=== PATIENT | female | born 1935 | race Caucasian/White ===

== ENCOUNTER → 2018-02-22 07:32 | Outpatient (CLI) | payer MEDICARE, BC, SELFPAY ==
[2018-02-22 09:26] LABS: AST(SGOT) 18 U/L (15-37); Alanine Aminotransfer ALT/SGPT 16 U/L (13-56); Albumin, Serum 3.3 g/dL (3.2-5.0); Alkaline Phosphatase 91 U/L (45-117); Bilirubin, Direct 0.12 mg/dL (0.00-0.30); Cholesterol 164 mg/dL (200); Globulin 4.3 g/dL (2.2-4.2); High Density Lipoprotein 70 mg/dL; Protein, Total 7.6 g/dL (6.4-8.2); Triglycerides 85 mg/dL; Very Low Density Lipoprotein 17 mg/dL (5-40)
== END ==
PROVIDERS: Family Provider Family Medicine; PCP Family Medicine; Visit Provider Internal Medicine Cardiovascular Disease
DX: I10 Essential (primary) hypertension (principal); E78.5 Hyperlipidemia, unspecified; I25.10 Atherosclerotic heart disease of native coronary artery without angina pectoris; Z79.899 Other long term (current) drug therapy
CPT/HCPCS: 36415; 80061; 80076

== ENCOUNTER → 2018-09-03 08:12 | Outpatient (CLI) | payer MEDICARE, BC, SELFPAY ==
[2018-09-03 09:14] LABS: AST(SGOT) 16 U/L (15-37); Alanine Aminotransfer ALT/SGPT 18 U/L (13-56); Albumin, Serum 3.3 g/dL (3.2-5.0); Alkaline Phosphatase 83 U/L (45-117); Cholesterol 162 mg/dL (200); Globulin 4.1 g/dL (2.2-4.2); High Density Lipoprotein 70 mg/dL; Protein, Total 7.4 g/dL (6.4-8.2); Triglycerides 70 mg/dL; Very Low Density Lipoprotein 14 mg/dL (5-40)
== END ==
PROVIDERS: Family Provider Family Medicine; PCP Family Medicine; Referring Provider Physician Assistant Medical; Visit Provider Physician Assistant Medical
DX: E11.9 Type 2 diabetes mellitus without complications (principal); E78.5 Hyperlipidemia, unspecified; I10 Essential (primary) hypertension; I25.10 Atherosclerotic heart disease of native coronary artery without angina pectoris
CPT/HCPCS: 36415; 80061; 80076

== ENCOUNTER → 2019-03-09 07:24 | Outpatient (CLI) | payer MEDICARE, BC, SELFPAY ==
[2018-02-24 14:24] VITALS: BMI 34.4
[2019-03-09 08:38] LABS: AST(SGOT) 20 U/L (15-37); Alanine Aminotransfer ALT/SGPT 20 U/L (13-56); Albumin, Serum 3.4 g/dL (3.2-5.0); Alkaline Phosphatase 92 U/L (45-117); Bilirubin, Direct 0.16 mg/dL (0.00-0.30); Cholesterol 162 mg/dL (200); Globulin 4.1 g/dL (2.2-4.2); High Density Lipoprotein 74 mg/dL; Protein, Total 7.5 g/dL (6.4-8.2); Triglycerides 78 mg/dL; Very Low Density Lipoprotein 16 mg/dL (5-40)
== END ==
PROVIDERS: Family Provider Family Medicine; PCP Family Medicine; Referring Provider Physician Assistant Medical; Visit Provider Physician Assistant Medical
DX: E78.5 Hyperlipidemia, unspecified (principal)
CPT/HCPCS: 36415; 80061; 80076

== ENCOUNTER → 2019-03-29 10:09 | Outpatient (CLI) | payer MEDICARE, BC, SELFPAY ==
[2019-03-11 14:05] VITALS: BMI 33.6
[2019-03-29 12:21] LABS: Absolute Lymphocyte Count 1.92 X10^3/ul (0.83-4.51); Absolute Neutrophil Count 2.5 X10^3/uL (2.0-7.7); Basophil# 0.05 X10^3/uL; Basophil% 0.9 % (0-1); Eosinophil# 0.13 X10^3/uL; Eosinophils% 2.4 % (0-5); Hematocrit 40.1 % (37-47); Hemoglobin 13.2 g/dl (12.0-15.0); Lymphocyte # 1.92 X10^3/ul (4.0); Lymphocyte % 35.8 % (19-41); Mean Corp Hgb Conc 32.9 g/gl (32-36); Mean Corpuscular Hgb 31.2 pg (27.0-32.0); Mean Corpuscular Volume 94.8 fL (81-99); Mean Platelet Vol. 12.9 fl (6.2-12.0); Monocyte# 0.76 X10^3/uL; Monocyte% 14.2 % (0-10); Neutrophil % 46.5 % (47-70); Platelet Count 202 K/mm3 (150-450); RBC Distribution Width SD 43.8 fl (35.1-43.9); Red Blood Count 4.23 M/mm3 (4.2-5.4); White Blood Count 5.4 K/mm3 (4.4-11.0)
[2019-03-29 12:22] LABS: POSITIVE COUNT NO; POSITIVE DIFFERENTIAL NO; POSITIVE MORPHOLOGY NO
[2019-03-29 12:52] LABS: Microalbumin,Random Urine 5.3 mg/L (NO RANGE EST.); Microalbumin:Creatinine Ratio 7.3 mg/g CRE (<30 mg/g CRE)
[2019-03-29 13:02] LABS: ALB/GLOB Ratio 0.9 RATIO (0.9-2.4); AST(SGOT) 19 U/L (15-37); Alanine Aminotransfer ALT/SGPT 21 U/L (13-56); Albumin, Serum 3.4 g/dL (3.2-5.0); Alkaline Phosphatase 88 U/L (45-117); Anion Gap 7 (5-15); BUN 14 mg/dL (7-18); Calcium,Total 8.5 mg/dL (8.5-10.1); Chloride 106 mmol/L (98-107); Creatinine, Serum 0.74 mg/dL (0.55-1.02); EST Glomerular Filtration Rate 80 mL/min (>60); Est Glom Filt Rate - Afr Amer 97 mL/min (>60); Globulin 3.7 g/dL (2.2-4.2); Glucose 104 mg/dL (74-106); Potassium 4.4 mmol/L (3.5-5.1); Protein, Total 7.1 g/dL (6.4-8.2); Sodium Level 139 mmol/L (136-145); Thyroid Stim Hormone (TSH) 1.51 uIU/mL (0.358-3.74)
== END ==
PROVIDERS: Family Provider Family Medicine; PCP Family Medicine; Referring Provider Family Medicine; Visit Provider Family Medicine
DX: E03.9 Hypothyroidism, unspecified (principal); I10 Essential (primary) hypertension; M79.89 Other specified soft tissue disorders
CPT/HCPCS: 36415; 80053; 82043; 82570; 84439; 84443; 85025

== ENCOUNTER → 2019-04-05 13:18 | Outpatient (CLI) | payer MEDICARE, BC, SELFPAY ==
[2019-03-11 14:05] VITALS: BMI 33.6
--- NOTE | 2019-04-05 13:20 | VDLE_ITS ---
Reason For Study: Swelling Procedure LEFT Exam performed in department. GSV is normal. A preliminary report was called and/or faxed CFV is compressible, spontaneous, phasic, to Aaron's office. competent, and demonstrates normal augmentation. FV is compressible, spontaneous, phasic, competent and demonstrates normal augmentation. POP V is compressible, spontaneous, phasic, competent and demonstrates normal augmentation. T/P Trunk is compressible. PTV is compressible. LT PerV is compressible. Thrombus filled varicose veins noted in the popliteal space and medial calf. Interpretation Summary Deep veins of the left lower extremity are patent and compressible segmentally. There is no evidence of left lower extremity deep vein thrombosis. Valvular competence appears intact within the proximal deep venous system on the left . The left greater saphenous vein appears patent and compressible segmentally. Acute superficial thrombophlebitis is noted involving superficial varicosities in the left popliteal space and the left medial calf. Ordering Physician: Bry Walker Referring Physician: Bry Walker Performed By: Barbara Patel RVT
== END ==
PROVIDERS: Family Provider Family Medicine; PCP Family Medicine; Referring Provider Family Medicine; Visit Provider Family Medicine
DX: M79.89 Other specified soft tissue disorders (principal)
CPT/HCPCS: 93971

== ENCOUNTER → 2019-09-08 08:21 | Outpatient (CLI) | payer MEDICARE, BC, SELFPAY ==
[2019-03-11 14:05] VITALS: BMI 33.6
[2019-09-08 11:21] LABS: AST(SGOT) 17 U/L (15-37); Alanine Aminotransfer ALT/SGPT 18 U/L (13-56); Albumin, Serum 3.3 g/dL (3.2-5.0); Alkaline Phosphatase 92 U/L (45-117); Bilirubin, Direct 0.14 mg/dL (0.00-0.30); Cholesterol 155 mg/dL (200); Globulin 4.4 g/dL (2.2-4.2); High Density Lipoprotein 72 mg/dL; Protein, Total 7.7 g/dL (6.4-8.2); Triglycerides 84 mg/dL; Very Low Density Lipoprotein 17 mg/dL (5-40)
== END ==
PROVIDERS: Physician Assistant Medical; Family Provider Family Medicine; PCP Family Medicine; Referring Provider Internal Medicine Cardiovascular Disease; Visit Provider Internal Medicine Cardiovascular Disease
DX: E78.00 Pure hypercholesterolemia, unspecified (principal)
CPT/HCPCS: 36415; 80061; 80076

== ENCOUNTER → 2020-09-05 08:29 | Outpatient (CLI) | payer MEDICARE, BC, SELFPAY ==
[2019-09-14 13:39] VITALS: BMI 33.6
[2020-09-05 11:28] LABS: AST(SGOT) 20 U/L (15-37); Alanine Aminotransfer ALT/SGPT 19 U/L (13-56); Albumin, Serum 3.3 g/dL (3.2-5.0); Alkaline Phosphatase 81 U/L (45-117); Bilirubin, Direct 0.18 mg/dL (0.00-0.30); Cholesterol 167 mg/dL (200); Globulin 4.2 g/dL (2.2-4.2); High Density Lipoprotein 70 mg/dL; Protein, Total 7.5 g/dL (6.4-8.2); Triglycerides 100 mg/dL; Very Low Density Lipoprotein 20 mg/dL (5-40)
== END ==
PROVIDERS: PCP Family Medicine; Referring Provider Internal Medicine Cardiovascular Disease; Visit Provider Internal Medicine Cardiovascular Disease
DX: E78.00 Pure hypercholesterolemia, unspecified (principal)
CPT/HCPCS: 36415; 80061; 80076

== ENCOUNTER → 2021-04-25 07:34 | Outpatient (CLI) | payer MEDICARE, BC, SELFPAY ==
[2020-09-12 14:01] VITALS: BMI 33.5
[2021-04-25 09:05] LABS: AST(SGOT) 18 U/L (15-37); Alanine Aminotransfer ALT/SGPT 19 U/L (13-56); Albumin, Serum 3.3 g/dL (3.2-5.0); Alkaline Phosphatase 96 U/L (45-117); Cholesterol 160 mg/dL (200); Globulin 4.4 g/dL (2.2-4.2); High Density Lipoprotein 64 mg/dL; Protein, Total 7.7 g/dL (6.4-8.2); Triglycerides 73 mg/dL; Very Low Density Lipoprotein 15 mg/dL (5-40)
== END ==
PROVIDERS: PCP Family Medicine; Referring Provider Internal Medicine Cardiovascular Disease; Visit Provider Internal Medicine Cardiovascular Disease
DX: E78.00 Pure hypercholesterolemia, unspecified (principal)
CPT/HCPCS: 36415; 80061; 80076

== ENCOUNTER → 2021-09-05 08:26 | Outpatient (CLI) | payer MEDICARE, BC, SELFPAY ==
[2021-09-05 10:58] LABS: AST(SGOT) 19 U/L (15-37); Alanine Aminotransfer ALT/SGPT 19 U/L (13-56); Alkaline Phosphatase 80 U/L (45-117); Cholesterol 153 mg/dL (200); Globulin 4.3 g/dL (2.2-4.2); High Density Lipoprotein 66 mg/dL; Protein, Total 7.3 g/dL (6.4-8.2); Triglycerides 78 mg/dL; Very Low Density Lipoprotein 16 mg/dL (5-40)
== END ==
PROVIDERS: PCP Family Medicine; Referring Provider Internal Medicine Cardiovascular Disease; Visit Provider Internal Medicine Cardiovascular Disease
DX: E78.00 Pure hypercholesterolemia, unspecified (principal); I25.10 Atherosclerotic heart disease of native coronary artery without angina pectoris; I10 Essential (primary) hypertension
CPT/HCPCS: 36415; 80061; 80076

== ENCOUNTER → 2021-10-14 10:21 | Outpatient (CLI) | payer MEDICARE, BC, SELFPAY ==
[2021-10-14 12:29] LABS: Erythrocyte Sedimentation Rate 18 mm/hr (0-30)
[2021-10-14 12:42] LABS: Microalbumin:Creatinine Ratio 11.8 mg/g CRE (<30 mg/g CRE)
[2021-10-14 13:25] LABS: Anion Gap 5 (5-15); BUN 11 mg/dL (7-18); BUN/Creat Ratio 14.4 RATIO (10-20); CRP < 2.90 mg/L (0.0-3.0); Calcium,Total 8.9 mg/dL (8.5-10.1); Chloride 108 mmol/L (98-107); Creatinine, Serum 0.76 mg/dL (0.55-1.02); EST Glomerular Filtration Rate 76 mL/min (>60); Est Glom Filt Rate - Afr Amer 92 mL/min (>60); Glucose 117 mg/dL (74-106); Magnesium 1.6 mg/dL (1.6-2.6); Potassium 3.8 mmol/L (3.5-5.1); Sodium Level 142 mmol/L (136-145); Thyroid Stim Hormone (TSH) 1.29 uIU/mL (0.358-3.74)
[2021-10-14 14:28] LABS: Hemoglobin A1c 5.8 % (3.8-5.6)
== END ==
PROVIDERS: PCP Family Medicine; Referring Provider Family Medicine; Visit Provider Family Medicine
DX: E03.9 Hypothyroidism, unspecified (principal); K58.9 Irritable bowel syndrome, unspecified; I10 Essential (primary) hypertension; E11.9 Type 2 diabetes mellitus without complications
CPT/HCPCS: 36415; 80048; 82043; 82570; 83036; 83735; 84443; 85652; 86140

== ENCOUNTER 2021-11-19 12:31 | Outpatient (CLI) | payer MEDICARE, BC, SELFPAY ==
--- NOTE | 2021-11-19 12:35 | BI_ITS ---
MAMMOGRAPHY - BILATERAL SCREENING REASON FOR EXAM: Female, 86 years old. Routine annual screening examination. PERTINENT HISTORY: Personal history of breast cancer. The patient is status post left lumpectomy. The patient is also status post right excisional breast biopsy. TECHNIQUE: Digital bilateral breast sukhi (3D mammographic acquisition) in the CC and MLO projections. 2-D mediolateral oblique (MLO) and craniocaudad (CC) views of both breasts were obtained. CAD: Full Field Digital Mammography with Computer Added Detection was performed. COMPARISON: Comparison is made with prior study dated 01/01/2017 and 08/30/2015. FINDINGS: Breast Composition: There are scattered areas of fibroglandular density. There are no dominant masses or suspicious calcifications. Stable small benign appearing bilateral axillary nodes. Stable bilateral microcalcifications. No other significant abnormalities are identified. There has been no significant change since the prior study. BI/SCREENING MAMM (CAD), BILAT IMPRESSION: Stable bilateral screening mammogram. Yearly follow-up mammogram recommended. (A) ASSESSMENT CATEGORY: BIRADS Category 2: Benign. A letter regarding these results will be sent to the patient by the facility within 30 days. Approximately 10% of breast cancers are not detected by mammography. A normal mammogram should not delay biopsy of a clinically suspicious abnormality. [id number] Electronically Signed: Franco Hurtado MD at 14:07 EST , Service support ,
--- NOTE | 2021-11-19 12:43 | BD_ITS ---
STUDY: DUAL ENERGY X-RAY ABSORPTIOMETRY / DXA REASON FOR EXAM: Female, 86 years old. N95.9 TECHNIQUE: Bone Mineral Density (BMD) measurements of lumbar spine and bilateral hips were obtained. COMPARISON: Comparison is made with prior study dated 10/06/2012. FINDINGS: Lumbar Spine (L1-L4): g/cm2 (1.295) / T-score (2.9) / Z-score (5.6) Findings are suggestive of normal bone density with a low fracture risk. Left Femur Total: g/cm2 (1.118) / T-score (1.4) / Z-score (3.8) Left Femoral Neck: g/cm2 (0.885) / T-score (0.3) / Z-score (2.8) Right Femur Total: g/cm2 (1.069) / T-score (1.0) / Z-score (3.4) Right Femoral Neck: g/cm2 (0.891) / T-score (0.4) / Z-score (2.9) The T-Scores on the most recent prior examination were: Lumbar Spine (L1-L4): There has been worsening of bone density since the previous examination. Left Femur Total: which represents a worsening of 7.9%. Right Femur Total: which represents a worsening of 5.8%. BD/Dexa Bone Density Study IMPRESSION: The patient is considered normal as outlined below according to World Jose Organization (WHO) criteria with a low fracture risk. There has been worsening of bone density since the previous examination. Reference Information: The T-score is the number of standard deviations above or below the standard which is normal for young adults at their peak bone mineral density. The World Health Organization (WHO) interprets the T-scores as follows: Above -1 Normal bone density Between -1 and -2.5 Osteopenia Equal to / or below -2.5 Osteoporosis As a practical clinical guideline, osteopenia may be graded as follows: Mild -1 through -1.5 Moderate -1.6 through -2.0 Severe -2.1 through -2.4 The Z-score is the number of standard deviations above or below age-matched controls. A Z-score of less than -1.5 would be considered abnormal. References: 1. NIH Osteoporosis and Related Bone Diseases www osteo.org 2. International Society for Clinical Densitometry www iscd.org 3. National Osteoporosis Foundation www nof.org Electronically Signed: Franco Hurtado MD at 15:32 EST , Service support ,
== END 2021-11-19 23:59 | disposition short-term general hospital (02) ==
LOC: OPBD 12:31
PROVIDERS: PCP Family Medicine; Visit Provider Family Medicine
DX: N95.9 Unspecified menopausal and perimenopausal disorder (principal); Z12.31 Encounter for screening mammogram for malignant neoplasm of breast; Z85.3 Personal history of malignant neoplasm of breast
CPT/HCPCS: 77067; 77080

== ENCOUNTER → 2022-04-21 | Outpatient (CLI) | payer MEDICARE, BC, SELFPAY ==
[2022-04-21 10:58] LABS: AST(SGOT) 23 U/L (15-37); Alanine Aminotransfer ALT/SGPT 21 U/L (13-56); Albumin, Serum 3.1 g/dL (3.2-5.0); Alkaline Phosphatase 84 U/L (45-117); Bilirubin, Direct 0.16 mg/dL (0.00-0.30); Cholesterol 150 mg/dL (200); Globulin 4.5 g/dL (2.2-4.2); High Density Lipoprotein 61 mg/dL; Protein, Total 7.6 g/dL (6.4-8.2); Triglycerides 71 mg/dL; Very Low Density Lipoprotein 14 mg/dL (5-40)
[2022-04-21 11:01] LABS: ALB/GLOB Ratio 0.7 RATIO (0.9-2.4); AST(SGOT) 18 U/L (15-37); Alanine Aminotransfer ALT/SGPT 19 U/L (13-56); Albumin, Serum 3.1 g/dL (3.2-5.0); Alkaline Phosphatase 86 U/L (45-117); Anion Gap 6 (5-15); BUN 15 mg/dL (7-18); Calcium,Total 8.8 mg/dL (8.5-10.1); Chloride 107 mmol/L (98-107); Creatinine, Serum 0.79 mg/dL (0.55-1.02); EST Glomerular Filtration Rate 73 mL/min (>60); Est Glom Filt Rate - Afr Amer 89 mL/min (>60); Globulin 4.3 g/dL (2.2-4.2); Glucose 116 mg/dL (74-106); Potassium 3.7 mmol/L (3.5-5.1); Protein, Total 7.4 g/dL (6.4-8.2); Sodium Level 140 mmol/L (136-145); Thyroid Stim Hormone (TSH) 1.49 uIU/mL (0.358-3.74)
[2022-04-21 11:01] LABS: Microalbumin,Random Urine 18.6 mg/L (NO RANGE EST.); Microalbumin:Creatinine Ratio 10.4 mg/g CRE (<30 mg/g CRE)
== END | disposition home or self-care (01) ==
LOC: MTLAB 08:11
PROVIDERS: PCP Family Medicine; Referring Provider Internal Medicine Cardiovascular Disease; Visit Provider Internal Medicine Cardiovascular Disease
DX: E11.628 Type 2 diabetes mellitus with other skin complications (principal); E78.00 Pure hypercholesterolemia, unspecified; E03.9 Hypothyroidism, unspecified
CPT/HCPCS: 36415; 80053; 80061; 80076; 82043; 82570; 84443

== ENCOUNTER → 2022-09-23 | Outpatient (CLI) | payer MEDICARE, BC, SELFPAY ==
[2022-09-23 10:18] LABS: AST(SGOT) 21 U/L (15-37); Alanine Aminotransfer ALT/SGPT 23 U/L (13-56); Albumin, Serum 3.3 g/dL (3.2-5.0); Alkaline Phosphatase 92 U/L (45-117); Bilirubin, Direct 0.14 mg/dL (0.00-0.30); Cholesterol 164 mg/dL (200); Globulin 4.7 g/dL (2.2-4.2); High Density Lipoprotein 67 mg/dL; Triglycerides 101 mg/dL; Very Low Density Lipoprotein 20 mg/dL (5-40)
== END | disposition home or self-care (01) ==
LOC: MTLAB 08:25
PROVIDERS: PCP Family Medicine; Referring Provider Internal Medicine Cardiovascular Disease; Visit Provider Internal Medicine Cardiovascular Disease
DX: E78.00 Pure hypercholesterolemia, unspecified (principal)
CPT/HCPCS: 36415; 80061; 80076

== ENCOUNTER → 2022-11-20 | Outpatient (CLI) | payer MEDICARE, BC, SELFPAY ==
--- NOTE | 2022-11-20 11:50 | BI_ITS ---
MAMMOGRAPHY - BILATERAL SCREENING REASON FOR EXAM: Female, 87 years old. Routine annual screening examination. PERTINENT HISTORY: Personal history of breast cancer. Prior right excisional breast biopsy and left lumpectomy. TECHNIQUE: Digital bilateral breast silvino (3D mammographic acquisition) in the CC and MLO projections. 2-D mediolateral oblique (MLO) and craniocaudad (CC) views of both breasts were obtained. CAD: Full Field Digital Mammography with Computer Added Detection was performed. COMPARISON: Comparison is made with prior examination dated 11/19/2021 and 01/01/2017. FINDINGS: Breast Composition: There are scattered areas of fibroglandular density. There are no dominant masses or suspicious calcifications. Stable small benign-appearing axillary lymph nodes. Stable scattered bilateral calcified nodules. No other significant abnormalities are identified. There has been no significant change since the prior study. BI/SCRN MAMM (CAD)W/SILVINO BILAT IMPRESSION: Stable bilateral screening mammogram. Yearly follow-up mammogram recommended. (A) ASSESSMENT CATEGORY: BIRADS Category 2: Benign. A letter regarding these results will be sent to the patient by the facility within 30 days. Approximately 10% of breast cancers are not detected by mammography. A normal mammogram should not delay biopsy of a clinically suspicious abnormality. [id number] Electronically Signed: Franco Hurtado MD at 13:08 EST ,
== END | disposition home or self-care (01) ==
LOC: OPBI 11:48
PROVIDERS: PCP Family Medicine; Referring Provider Family Medicine; Visit Provider Family Medicine
DX: Z12.31 Encounter for screening mammogram for malignant neoplasm of breast (principal); Z86.000 Personal history of in-situ neoplasm of breast
CPT/HCPCS: 77063; 77067

== ENCOUNTER → 2023-07-24 | Outpatient (CLI) | payer MEDICARE, BC, SELFPAY ==
[2023-07-24 12:04] LABS: Absolute Neutrophil Count 3.2 X10^3/uL (2.0-7.7); Basophil# 0.06 X10^3/uL; Eosinophil# 0.13 X10^3/uL; Eosinophils% 2.1 % (0-5); Hematocrit 40.4 % (37-47); Hemoglobin 12.6 g/dL (12.0-15.0); Lymphocyte % 32.2 % (19-41); Mean Corp Hgb Conc 31.2 g/dL (32-36); Mean Corpuscular Hgb 30.5 pg (27.0-32.0); Mean Corpuscular Volume 97.8 fL (81-99); Mean Platelet Vol. 12.3 fl (6.2-12.0); Monocyte# 0.82 X10^3/uL; Monocyte% 13.2 % (0-10); NRBC Flagged by Analyzer 0 % (0-5); Neutrophil # 3.19 X10^3/uL (2.7-7.7); Neutrophil % 51.3 % (47-70); Platelet Count 250 K/mm3 (150-450); RBC Distribution Width CV 12.7 % (11.6-14.6); RBC Distribution Width SD 45.2 fl (35.1-43.9); Red Blood Count 4.13 M/mm3 (4.2-5.4); White Blood Count 6.2 K/mm3 (4.4-11.0)
[2023-07-24 12:50] LABS: ALB/GLOB Ratio 0.7 RATIO (0.9-2.4); AST(SGOT) 15 U/L (15-37); Alanine Aminotransfer ALT/SGPT 16 U/L (13-56); Albumin, Serum 3.2 g/dL (3.2-5.0); Alkaline Phosphatase 88 U/L (45-117); Anion Gap 3 (5-15); BUN 16 mg/dL (7-18); Chloride 107 mmol/L (98-107); Creatinine, Serum 0.84 mg/dL (0.55-1.02); EST Glomerular Filtration Rate 68 mL/min (>60); Est Glom Filt Rate - Afr Amer 82 mL/min (>60); Globulin 4.5 g/dL (2.2-4.2); Glucose 117 mg/dL (74-106); Potassium 4.3 mmol/L (3.5-5.1); Protein, Total 7.7 g/dL (6.4-8.2); Sodium Level 137 mmol/L (136-145)
[2023-07-24 13:01] LABS: Microalbumin,Random Urine 6.2 mg/L (NO RANGE EST.); Microalbumin:Creatinine Ratio 10.4 mg/g CRE (<30 mg/g CRE)
[2023-07-24 13:16] LABS: Hemoglobin A1c 6.2 % (3.8-5.6)
== END | disposition home or self-care (01) ==
LOC: MTLAB 10:42
PROVIDERS: PCP Family Medicine; Referring Provider Family Medicine; Visit Provider Family Medicine
DX: E11.628 Type 2 diabetes mellitus with other skin complications (principal); I10 Essential (primary) hypertension
CPT/HCPCS: 36415; 80053; 82043; 82570; 83036; 85025

== ENCOUNTER → 2023-11-11 | Outpatient (CLI) | payer MEDICARE, BC, SELFPAY ==
--- OUTSIDE RECORDS SUMMARY | 2023-11-11 08:02 | XMS RPT_ITS | CCD ---
Author Name Unknown Address [facility] [employer] [facility] [address] [place] [address] Organization [facility] Care Team Providers Care Manager Environmental Health Name Role Phone Gerson Walker Unavailable Unavailable FREDI Anthony, Shelly Maguire Unavailable [phone] Gerson Walker Unavailable Unavailable Gerson Walker Unavailable Unavailable Yareli Bradley Unavailable Allergies Allergy Classification Reported Allergen(s) Allergy Type Date of Onset Reaction(s) Facility (4 sources) Sulfonamides (Antibiotic) drug allergy 2 [facility] Work Phone: Medications Completed/Discontinued Medications Medication Drug Class(es) Dates Sig (Normalized) Sig (Original) amoxicillin 875 mg oral tablet (8 sources) Penicillin-class Antibacterial Start: 09-30-2013 End: 09-25-2014 AMOXICILLIN 875 MG TABS for sinus infection AMOXICILLIN [id number] Dominic Thao MD aspirin 81 mg oral tablet (8 sources) Nonsteroidal Anti-inflammatory Drug Start: 03-08-2012 take 1 tablet by mouth once daily ASPIRIN 81 MG TABS One tablet by mouth daily ASPIRIN [id number] Tahmina Mederos RN Problems Active Problems Problem Classification Problem Date Documented Date Episodic/Chronic Conduction disorders (4 sources) First degree atrioventricular block; Translations: [Atrioventricular block, first degree] Onset: 05-28-2015 05-28-2015 Chronic Coronary atherosclerosis and other heart disease (4 sources) Atherosclerotic heart disease of [place] coronary artery without angina pectoris; Translations: [Atherosclerotic heart disease of [place] coronary artery without angina pectoris] Onset: 05-10-2012 05-10-2012 Chronic Diabetes mellitus without complication (4 sources) Diabetes mellitus; Translations: [Type 2 diabetes mellitus without complications] Onset: 03-08-2012 03-08-2012 Chronic Disorders of lipid metabolism (8 sources) Hyperlipidemia; Translations: [Hypercholesterolemia] Onset: 05-10-2012 07-16-2012 Chronic Essential hypertension (4 sources) Hypertensive disorder; Translations: [Essential (primary) hypertension] Onset: 03-08-2012 03-08-2012 Chronic Other and ill-defined heart disease (4 sources) Heart disease; Translations: [Other ill-defined heart diseases] Onset: 03-15-2012 03-15-2012 Chronic Other nutritional; endocrine; and metabolic disorders (2 sources) Body mass index (BMI) 30.0-30.9, adult; Translations: [Body mass index (BMI) 30.0-30.9, adult] Onset: 09-30-2013 09-30-2013 Chronic Other nutritional; endocrine; and metabolic disorders (4 sources) Body mass index (BMI) 31.0-31.9, adult; Translations: [Body mass index (BMI) 31.0-31.9, adult] Onset: 09-25-2014 12-22-2016 Chronic Unclassified (10 sources) Body mass index (BMI) 32.0-32.9, adult; Translations: [Body mass index (BMI) 31.0-31.9, adult] Onset: 09-30-2013 10-26-2015 Chronic Unclassified (8 sources) Long-term drug therapy; Translations: [Long-term (current) use of other medications] Onset: 07-16-2012 07-16-2012 Past or Other Problems Problem Classification Problem Date Documented Date Episodic/Chronic Residual codes; unclassified (2 sources) Family history of stroke; Translations: [Family history of stroke] 09-25-2014 Episodic Residual codes; unclassified (2 sources) FH: Hypertension; Translations: [Family history of ischemic heart disease and other diseases of the circulatory system] 09-25-2014 Episodic Unclassified (4 sources) Electrocardiogram abnormal; Translations: [Abnormal electrocardiogram [ECG] [EKG]] Onset: 03-08-2012 03-08-2012 Episodic Unclassified (12 sources) Body mass index (BMI) 29.0-29.9, adult; Translations: [FH: Hypertension] Onset: 09-30-2013 Resolved: 10-24-2015 04-05-2014 Episodic Results Test Name Value Interpretation Reference Range Facil ity Vital Signs Date Time Vital Sign Value Performing Clinician Chay orellana 08-28-2017 13:29-0400 BMI (Body Mass Index) 31.79 kg/m2 Harumi DeFinchandana [facility] Work Phone: 08-28-2017 13:29-0400 BP Diastolic 76 mm[Hg] Harumi DeFinis [facility] Work Phone: 08-28-2017 13:29-0400 BP Systolic 142 mm[Hg] Harumi DeFinis [facility] Work Phone: 08-28-2017 13:29-0400 Height 168.91 cm Harumi DeFinis [facility] Work Phone: 08-28-2017 13:29-0400 Pulse (Heart Rate) 64 /min Harumi DeFinis [facility] Work Phone: 08-28-2017 13:29-0400 Respiratory Rate 18 /min Harumi DeFinis [facility] Work Phone: 08-28-2017 13:29-0400 Weight 90.72 kg Harumi DeFinis [facility] Work Phone: 12-22-2016 14:15-0500 BMI (Body Mass Index) 31.92 kg/m2 Shelly Anthony PA-C [facility] Work Phone: 12-22-2016 14:15-0500 BP Diastolic 60 mm[Hg] Shelly Anthony PA-C [facility] Work Phone: 12-22-2016 14:15-0500 BP Systolic 112 mm[Hg] Shelly Anthony PA-C [facility] Work Phone: 12-22-2016 14:15-0500 BSA (Body Surface Area) 2.02 m2 Shelly Anthony PA-C [facility] Work Phone: 12-22-2016 14:15-0500 Pulse (Heart Rate) 72 /min Shelly Anthony PA-C [facility] Work Phone: 12-22-2016 14:15-0500 Respiratory Rate 20 /min Shelly Anthony PA-C [facility] Work Phone: 12-22-2016 14:15-0500 Weight 91.08 kg Shelly Anthony PA-C [facility] Work Phone: 10-26-2015 13:55-0500 Heart rate 67 /min Harumi DeFinis [facility] Work Phone: 03-25-2012 15:34-0400 Heart rate 424 ms Harumi DeFinis [facility] Work Phone: 03-12-2012 13:20-0400 Height 168.91 cm Shelly Anthony PA-C [facility] Work Phone: Procedures Date Procedure Procedure Detail Performing Clinician Start: 08-28-2017 End: 08-28-2017 Follow Up Appt 6 months Dominic Thao MD Start: 08-28-2017 End: 08-28-2017 MMM Dominic Thao MD Start: 06-22-2017 End: 08-26-2017 *Hepatic Function Panel Shelly green PA-C Work Phone: Start: 06-22-2017 End: 08-26-2017 Lipid 1996 panel - Serum or Plasma Shelly Anthony PA-C Work Phone: Start: 12-22-2016 End: 12-22-2016 *Hepatic Function Panel Shelly green PA-C Work Phone: Start: 12-22-2016 End: 12-22-2016 Follow Up Appt 9 months Shelly green PA-C Work Phone: Start: 12-22-2016 End: 12-22-2016 Lipid 1996 panel - Serum or Plasma Shelly Anthony PA-C Work Phone: Start: 12-22-2016 End: 12-22-2016 PFM Shelly Anthony PA-C Work Phone: Start: 06-23-2016 End: 06-23-2016 Dietary management education, guidance, and counseling Gerson Walker Start: 06-23-2016 End: 06-23-2016 Follow Up Appt 6 months Dominic Thao MD Start: 06-23-2016 End: 06-23-2016 MMM Dominic Thao MD Start: 06-09-2016 End: 06-25-2016 *Hepatic Function Panel Dominic Thao MD Start: 06-09-2016 End: 06-25-2016 Lipid 1996 panel - Serum or Plasma Dominic Thao MD Start: 04-24-2016 End: 06-20-2016 *Hepatic Function Panel Shelly green PA-C Work Phone: Start: 04-24-2016 End: 06-20-2016 Lipid 1996 panel - Serum or Plasma Shelly Anthony PA-C Work Phone: Start: 10-26-2015 End: 10-26-2015 Ecg routine ecg w/least 12 lds w/i&r Shelly Anthony PA-C Work Phone: Start: 10-26-2015 End: 10-26-2015 Follow Up Appt 6 months Shelly green PA-C Work Phone: Start: 10-26-2015 End: 10-26-2015 Follow Up Appt Other Shelly frost PA-C Work Phone: Start: 10-26-2015 End: 10-26-2015 PFM Shelly Anthony PA-C Work Phone: Start: 10-24-2015 End: 10-24-2015 *Hepatic Function Panel Shelly green PA-C Work Phone: Start: 10-24-2015 End: 10-24-2015 Lipid 1996 panel - Serum or Plasma Shelly Anthony PA-C Work Phone: Start: 05-02-2015 End: 05-02-2015 Follow Up Appt 6 months Dominic Thao MD Start: 05-02-2015 End: 05-02-2015 MMM Dominic Thao MD Start: 04-30-2015 End: 04-30-2015 *Hepatic Function Panel Shelly green PA-C Work Phone: Start: 04-30-2015 End: 04-30-2015 Lipid 1996 panel - Serum or Plasma Shelly Anthony PA-C Work Phone: Start: 09-25-2014 End: 11-07-2014 *Hepatic Function Panel Shelly green PA-C Work Phone: Start: 09-25-2014 End: 09-25-2014 Ecg routine ecg w/least 12 lds w/i&r Shelly Anthony PA-C Work Phone: Start: 09-25-2014 End: 09-25-2014 Follow Up Appt 6 months Shelly green PA-C Work Phone: Start: 09-25-2014 End: 11-07-2014 Lipid 1996 panel - Serum or Plasma Shelly Anthony PA-C Work Phone: Start: 09-25-2014 End: 09-25-2014 PFM Shelly Anthony PA-C Work Phone: Start: 04-05-2014 End: 09-25-2014 *Hepatic Function Panel Dominic Thao MD Start: 04-05-2014 End: 04-05-2014 Follow Up Appt 6 months Dominic Thao MD Start: 04-05-2014 End: 09-25-2014 Lipid 1996 panel - Serum or Plasma Dominic Thao MD Start: 04-05-2014 End: 04-05-2014 MMM Dominic Thao MD Start: 09-30-2013 End: 04-04-2014 *Hepatic Function Panel Dominic Thao MD Start: 09-30-2013 End: 04-05-2014 Follow Up Appt 6 months Dominic Thao MD Start: 09-30-2013 End: 04-04-2014 Lipid 1996 panel - Serum or Plasma Dominic Thao MD Start: 09-30-2013 End: 04-05-2014 PFM Dominic Thao MD Start: 06-09-2013 End: 04-05-2014 *Hepatic Function Panel Manuel Beckford MD Start: 06-09-2013 End: 04-05-2014 Lipid 1996 panel - Serum or Plasma Manuel Beckford MD Start: 10-09-2012 End: 12-28-2012 *Hepatic Function Panel Manuel Beckford MD Start: 10-09-2012 End: 12-28-2012 Lipid 1996 panel - Serum or Plasma Manuel Beckford MD Start: 05-10-2012 End: 07-15-2012 *Hepatic Function Panel Manuel Beckford MD Start: 05-10-2012 End: 05-10-2012 Follow Up Appt Other Manuel Beckford MD Start: 05-10-2012 End: 07-15-2012 Lipid 1996 panel - Serum or Plasma Manuel Beckford MD Start: 03-25-2012 End: 04-20-2012 aPTT in Platelet poor plasma by Coagulation assay Manuel Beckford MD Start: 03-25-2012 End: 04-20-2012 Chest x-ray Manuel Beckford MD Start: 03-25-2012 End: 03-25-2012 Ecg routine ecg w/least 12 lds w/i&r Manuel Beckford MD Start: 03-25-2012 End: 03-25-2012 Follow Up Appt 2 months Manuel Beckford MD Start: 03-25-2012 End: 04-20-2012 INR in Platelet poor plasma by Coagulation assay Manuel Beckford MD Start: 03-25-2012 End: 04-20-2012 Left Heart Cath Manuel Beckford MD Start: 03-12-2012 End: 03-18-2012 *BMP Manuel Beckford MD Start: 03-12-2012 End: 03-18-2012 *CBC with Differential Manuel Beckford MD Start: 03-12-2012 End: 03-18-2012 24 hour holter monitor Manuel Beckford MD Start: 03-12-2012 End: 03-18-2012 aPTT in Platelet poor plasma by Coagulation assay Manuel Beckford MD Start: 03-12-2012 End: 03-18-2012 Echocardiography Manuel Beckford MD Start: 03-12-2012 End: 03-18-2012 Follow Up Appt 2 months Manuel Beckford MD Start: 03-12-2012 End: 03-18-2012 INR in Platelet poor plasma by Coagulation assay Manuel Beckford MD Start: 03-12-2012 End: 03-18-2012 Lipid 1996 panel - Serum or Plasma Manuel Beckford MD Start: 03-12-2012 End: 03-18-2012 Magnesium [Mass/volume] in Serum or Plasma Manuel Beckford MD Start: 03-12-2012 End: 03-18-2012 Nuclear stress test -adenosine Manuel Beckford MD Start: 03-12-2012 End: 03-18-2012 Thyrotropin [Units/volume] in Serum or Plasma Manuel Beckford MD Start: 03-12-2012 End: 03-18-2012 Thyroxine (T4) [Mass/volume] in Serum or Plasma Manuel Beckford MD Plan of Treatment Date Care Activity Detail Author Start: 02-24-2018 End: 02-24-2018 Appointment Appointment [facility] Work Phone: Start: 08-28-2017 End: 08-28-2017 *Hepatic Function Panel *Hepatic Function Panel [facility] Work Phone: Start: 08-28-2017 End: 08-28-2017 Follow Up Appt 6 months Follow Up Appt 6 months [facility] Work Phone: Start: 08-28-2017 End: 08-28-2017 Lipid panel [AGGREGATE] *Lipid Profile CC PCP [facility] Work Phone: Start: 08-28-2017 End: 08-28-2017 MMM MMM [facility] Work Phone: Start: 08-28-2017 End: 08-28-2017 Appointment Appointment [facility] Work Phone: Start: 06-22-2017 End: 08-26-2017 *Hepatic Function Panel *Hepatic Function Panel [facility] Work Phone: Start: 06-22-2017 End: 08-26-2017 Lipid panel [AGGREGATE] *Lipid Profile CC PCP [facility] Work Phone: Start: 12-22-2016 End: 12-22-2016 *Hepatic Function Panel *Hepatic Function Panel [facility] Work Phone: Start: 12-22-2016 End: 12-22-2016 Follow Up Appt 9 months Follow Up Appt 9 months [facility] Work Phone: Start: 12-22-2016 End: 12-22-2016 Lipid panel [AGGREGATE] *Lipid Profile CC PCP [facility] Work Phone: Start: 12-22-2016 End: 12-22-2016 PFM PFM [facility] Work Phone: Start: 06-23-2016 End: 06-23-2016 Follow Up Appt 6 months Follow Up Appt 6 months [facility] Work Phone: Start: 06-23-2016 End: 06-23-2016 MMM MMM [facility] Work Phone: Start: 06-09-2016 End: 06-25-2016 *Hepatic Function Panel *Hepatic Function Panel [facility] Work Phone: Start: 06-09-2016 End: 06-25-2016 Lipid panel [AGGREGATE] *Lipid Profile CC PCP [facility] Work Phone: Start: 04-24-2016 End: 06-20-2016 *Hepatic Function Panel *Hepatic Function Panel [facility] Work Phone: Start: 04-24-2016 End: 06-20-2016 Lipid panel [AGGREGATE] *Lipid Profile CC PCP [facility] Work Phone: Start: 10-30-2015 End: 10-24-2015 *Hepatic Function Panel *Hepatic Function Panel [facility] Work Phone: Start: 10-30-2015 End: 10-24-2015 Lipid panel [AGGREGATE] *Lipid Profile CC PCP [facility] Work Phone: Start: 10-26-2015 End: 10-26-2015 Ecg routine ecg w/least 12 lds w/i&r EKG (In office) [facility] Work Phone: Start: 10-26-2015 End: 10-26-2015 Follow Up Appt 6 months Follow Up Appt 6 months [facility] Work Phone: Start: 10-26-2015 End: 10-26-2015 Follow Up Appt Other Follow Up Appt Other [facility] Work Phone: Start: 10-26-2015 End: 10-26-2015 PFM PFM [facility] Work Phone: Start: 06-08-2015 End: 04-30-2015 *Hepatic Function Panel *Hepatic Function Panel [facility] Work Phone: Start: 06-08-2015 End: 04-30-2015 Lipid panel [AGGREGATE] *Lipid Profile CC PCP [facility] Work Phone: Start: 05-02-2015 End: 05-02-2015 Follow Up Appt 6 months Follow Up Appt 6 months [facility] Work Phone: Start: 05-02-2015 End: 05-02-2015 MMM MMM [facility] Work Phone: Start: 09-25-2014 End: 11-07-2014 *Hepatic Function Panel *Hepatic Function Panel [facility] Work Phone: Start: 09-25-2014 End: 09-25-2014 Ecg routine ecg w/least 12 lds w/i&r EKG (In office) [facility] Work Phone: Start: 09-25-2014 End: 09-25-2014 Follow Up Appt 6 months Follow Up Appt 6 months [facility] Work Phone: Start: 09-25-2014 End: 11-07-2014 Lipid panel [AGGREGATE] *Lipid Profile CC PCP [facility] Work Phone: Start: 09-25-2014 End: 09-25-2014 PFM PFM [facility] Work Phone: Start: 04-05-2014 End: 09-25-2014 *Hepatic Function Panel *Hepatic Function Panel [facility] Work Phone: Start: 04-05-2014 End: 04-05-2014 Follow Up Appt 6 months Follow Up Appt 6 months [facility] Work Phone: Start: 04-05-2014 End: 09-25-2014 Lipid panel [AGGREGATE] *Lipid Profile CC PCP [facility] Work Phone: Start: 04-05-2014 End: 04-05-2014 MMM MMM [facility] Work Phone: Start: 09-30-2013 End: 04-04-2014 *Hepatic Function Panel *Hepatic Function Panel [facility] Work Phone: Start: 09-30-2013 End: 04-05-2014 Follow Up Appt 6 months Follow Up Appt 6 months [facility] Work Phone: Start: 09-30-2013 End: 04-04-2014 Lipid panel [AGGREGATE] *Lipid Profile CC PCP [facility] Work Phone: Start: 09-30-2013 End: 04-05-2014 PFM PFM [facility] Work Phone: Start: 06-09-2013 End: 04-05-2014 *Hepatic Function Panel *Hepatic Function Panel [facility] Work Phone: Start: 06-09-2013 End: 04-05-2014 Lipid panel [AGGREGATE] *Lipid Profile [facility] Work Phone: Start: 10-09-2012 End: 12-28-2012 *Hepatic Function Panel *Hepatic Function Panel [facility] Work Phone: Start: 10-09-2012 End: 12-28-2012 Lipid panel [AGGREGATE] *Lipid Profile [facility] Work Phone: Start: 05-10-2012 End: 05-10-2012 *Hepatic Function Panel *Hepatic Function Panel [facility] Work Phone: Start: 05-10-2012 End: 05-10-2012 Follow Up Appt Other Follow Up Appt Other [facility] Work Phone: Start: 05-10-2012 End: 07-15-2012 Lipid panel [AGGREGATE] *Lipid Profile [facility] Work Phone: Start: 03-25-2012 End: 03-25-2012 aPTT *PTT-Partial Thromboplastin Time [facility] Work Phone: Start: 03-25-2012 End: 04-20-2012 Chest x-ray X-Ray, Chest, PA & Lateral [facility] Work Phone: Start: 03-25-2012 End: 03-25-2012 Ecg routine ecg w/least 12 lds w/i&r EKG (In office) [facility] Work Phone: Start: 03-25-2012 End: 03-25-2012 Follow Up Appt 2 months Follow Up Appt 2 months [facility] Work Phone: Start: 03-25-2012 End: 04-20-2012 INR Coag RelTime (PPP) *PT/INR [facility] Work Phone: Start: 03-25-2012 End: 03-25-2012 Left Heart Cath Left Heart Cath [facility] Work Phone: Start: 03-12-2012 End: 03-18-2012 *BMP *BMP [facility] Work Phone: Start: 03-12-2012 End: 03-18-2012 *CBC with Differential *CBC with Differential [facility] Work Phone: Start: 03-12-2012 End: 03-12-2012 24 hour holter monitor 24 hour holter monitor [facility] Work Phone: Start: 03-12-2012 End: 03-18-2012 aPTT *PTT-Partial Thromboplastin Time [facility] Work Phone: Start: 03-12-2012 End: 03-12-2012 Echocardiography Echocardiogram (complete) [facility] Work Phone: Start: 03-12-2012 End: 03-18-2012 Follow Up Appt 2 months Follow Up Appt 2 months [facility] Work Phone: Start: 03-12-2012 End: 03-18-2012 INR Coag RelTime (PPP) *PT/INR [facility] Work Phone: Start: 03-12-2012 End: 03-18-2012 Lipid panel [AGGREGATE] *Lipid Profile [facility] Work Phone: Start: 03-12-2012 End: 03-18-2012 Magnesium *Magnesium [facility] Work Phone: Start: 03-12-2012 End: 03-12-2012 Nuclear stress test -adenosine Nuclear stress test -adenosine [facility] Work Phone: Start: 03-12-2012 End: 03-18-2012 Thyroid stimulating hormone (TSH) *TSH [facility] Work Phone: Start: 03-12-2012 End: 03-18-2012 Thyroxine (T4) *T4 (Total) [facility] Work Phone: Patient Education [facility] Work Phone: Payers Date Payer Category Payer Policy ID Unknown Summary Purpose Family History No Family History Records Found Advance Directives No Advanced Directives Records Found Additional Source Comments INFORMATION SOURCE (unrecogn ized section and content) FOR RECORDS PERTAINING TO PATIENTS WHO ARE OR HAVE BEEN ENROLLED IN A CHEMICAL DEPENDENCY/SUBSTANCEABUSE PROGRAM, SOME INFORMATION MAY BE OMITTED. This clinical summary was aggregated from multiple sources. Caution should be exercised in using it in the provision of clinical care. This summary normalizes information from multiple sources, and as a consequence, information in this document may materially change the coding, format and clinical context of patient data. In addition, data may be omitted in some cases. CLINICAL DECISIONS SHOULD BE BASED ON THE PRIMARY CLINICAL RECORDS. [employer] provides no warranty or guarantee of the accuracy or completeness of information in this document.
[2023-11-11 11:42] LABS: AST(SGOT) 30 U/L (15-37); Alanine Aminotransfer ALT/SGPT 29 U/L (13-56); Albumin, Serum 3.1 g/dL (3.2-5.0); Alkaline Phosphatase 88 U/L (45-117); Bilirubin, Direct 0.17 mg/dL (0.00-0.30); Cholesterol 148 mg/dL (200); Globulin 4.6 g/dL (2.2-4.2); High Density Lipoprotein 72 mg/dL; Protein, Total 7.7 g/dL (6.4-8.2); Triglycerides 71 mg/dL; Very Low Density Lipoprotein 14 mg/dL (5-40)
== END | disposition home or self-care (01) ==
LOC: MTLAB 07:43
PROVIDERS: PCP Family Medicine; Referring Provider Internal Medicine Cardiovascular Disease; Visit Provider Internal Medicine Cardiovascular Disease
DX: E78.00 Pure hypercholesterolemia, unspecified (principal)
CPT/HCPCS: 36415; 80061; 80076

== ENCOUNTER → 2024-01-19 | Outpatient (CLI) | payer MEDICARE, BC, SELFPAY ==
[2024-01-19 10:51] LABS: Anion Gap 6 (5-15); BUN 12 mg/dL (7-18); BUN/Creat Ratio 15.8 RATIO (10-20); Calcium,Total 8.7 mg/dL (8.5-10.1); Chloride 107 mmol/L (98-107); Creatinine, Serum 0.76 mg/dL (0.55-1.02); EST Glomerular Filtration Rate 76 mL/min (>60); Est Glom Filt Rate - Afr Amer 92 mL/min (>60); Glucose 136 mg/dL (74-106); Potassium 3.6 mmol/L (3.5-5.1); Sodium Level 139 mmol/L (136-145); Thyroid Stim Hormone (TSH) 1.94 uIU/mL (0.358-3.74)
[2024-01-19 11:06] LABS: Microalbumin,Random Urine 17.9 mg/L (NO RANGE EST.); Microalbumin:Creatinine Ratio 13.6 mg/g CRE (<30 mg/g CRE)
--- OUTSIDE RECORDS SUMMARY | 2024-01-19 18:34 | XMS RPT_ITS | CCD ---
Author Name Unknown Address [facility] 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 Role Phone Gesron Walker Unavailable Unavailable FREDI Anthony, Shelly Maguire Unavailable Gerson Walker Unavailable Unavailable Gerson Walker Unavailable Unavailable Yareli Bradley Unavailable Allergies Allergy Classification Reported Allergen(s) Allergy Type Date of Onset Reaction(s) Facility (4 sources) Sulfonamides (Antibiotic) [facility]: Medications Completed/Discontinued Medications Medication Drug Class(es) Dates Sig (Normalized) Sig (Original) amoxicillin 875 mg oral tablet (8 sources) Penicillin-class Antibacterial Start: 09-30-2013 End: 09-25-2014 AMOXICILLIN 875 MG TABS for sinus infection AMOXICILLIN [id number] Dominic Thao MD aspirin 81 mg oral tablet (8 sources) Nonsteroidal Anti-inflammatory Drug Start: 03-08-2012 take 1 tablet by mouth once daily ASPIRIN 81 MG TABS One tablet by mouth daily ASPIRIN [id number] Tahmina Mederos RN Problems Active Problems Problem Classification Problem Date Documented Date Episodic/Chronic Conduction disorders (4 sources) First degree atrioventricular block; Translations: [Atrioventricular block, first degree] Onset: 05-28-2015 05-28-2015 Chronic Coronary atherosclerosis and other heart disease (4 sources) Atherosclerotic heart disease of [place] coronary artery without angina pectoris; Translations: [Atherosclerotic heart disease of [place] coronary artery without angina pectoris] Onset: 05-10-2012 [...] 13:29-0400 BP Diastolic 76 mm[Hg] Harumi DeFinis [facility] Work Phone: 08-28-2017 13:29-0400 BP Systolic 142 mm[Hg] Harumi DeFinis [facility] Work Phone: 08-28-2017 13:29-0400 Height 168.91 cm Harumi DeFinis [facility] Work Phone: 08-28-2017 13:29-0400 Pulse (Heart Rate) 64 /min Harumi DeFinis [facility] Work Phone: 08-28-2017 13:29-0400 Respiratory Rate 18 /min Harumi DeFinis [facility] Work Phone: 08-28-2017 13:29-0400 Weight 90.72 kg Harumi DeFinis [facility] Work Phone: 12-22-2016 14:15-0500 BMI (Body Mass Index) 31.92 kg/m2 Shelly Anthony PA-C [facility] Work Phone: 12-22-2016 14:15-0500 BP Diastolic 60 mm[Hg] Shelly Anthony PA-C [facility] Work Phone: 12-22-2016 14:15-0500 BP Systolic 112 mm[Hg] Shelly Anthony PA-C [facility] Work Phone: 12-22-2016 14:15-0500 BSA (Body Surface Area) 2.02 m2 Shelly Anthony PA-C [facility] Work Phone: 12-22-2016 14:15-0500 Pulse (Heart Rate) 72 /min Shelly Anthony PA-C [facility] Work Phone: 12-22-2016 14:15-0500 Respiratory Rate 20 /min Shelly Anthony PA-C [facility] Work Phone: 12-22-2016 14:15-0500 Weight 91.08 kg Shelly Anthony PA-C [facility] Work Phone: 10-26-2015 13:55-0500 Heart rate 67 /min Harumi DeFinis [facility] Work Phone: 03-25-2012 15:34-0400 Heart rate 424 ms Harumi DeFinis [facility] Work Phone: 03-12-2012 13:20-0400 Height 168.91 cm Shelly Anthony PA-C [facility] Work Phone: Procedures Date Procedure [...] Start: 12-22-2016 End: 12-22-2016 *Hepatic Function Panel hSelly green PA-C Work Phone: Start: 12-22-2016 End: [...] Author Start: 02-24-2018 End: 02-24-2018 Appointment Appointment [facility] Work Phone: Start: 08-28-2017 End: 08-28-2017 *Hepatic Function Panel *Hepatic Function Panel [facility] Work Phone: Start: 08-28-2017 End: 08-28-2017 Follow Up Appt 6 months Follow Up Appt 6 months [facility] Work Phone: Start: 08-28-2017 End: 08-28-2017 Lipid panel [AGGREGATE] *Lipid Profile CC PCP [facility] Work Phone: Start: 08-28-2017 End: 08-28-2017 MMM MMM [facility] Work Phone: Start: 08-28-2017 End: 08-28-2017 Appointment Appointment [facility] Work Phone: Start: 06-22-2017 End: 08-26-2017 *Hepatic Function Panel *Hepatic Function Panel [facility] Work Phone: Start: 06-22-2017 End: 08-26-2017 Lipid panel [AGGREGATE] *Lipid Profile CC PCP [facility] Work Phone: Start: 12-22-2016 End: 12-22-2016 *Hepatic Function Panel *Hepatic Function Panel [facility] Work Phone: Start: 12-22-2016 End: 12-22-2016 Follow Up Appt 9 months Follow Up Appt 9 months [facility] Work Phone: Start: 12-22-2016 End: 12-22-2016 Lipid panel [AGGREGATE] *Lipid Profile CC PCP [facility] Work Phone: Start: 12-22-2016 End: 12-22-2016 PFM PFM [facility] Work Phone: Start: 06-23-2016 End: 06-23-2016 Follow Up Appt 6 months Follow Up Appt 6 months [facility] Work Phone: Start: 06-23-2016 End: 06-23-2016 MMM MMM [facility] Work Phone: Start: 06-09-2016 End: 06-25-2016 *Hepatic Function Panel *Hepatic Function Panel [facility] Work Phone: Start: 06-09-2016 End: 06-25-2016 Lipid panel [AGGREGATE] *Lipid Profile CC PCP [facility] Work Phone: Start: 04-24-2016 End: 06-20-2016 *Hepatic Function Panel *Hepatic Function Panel [facility] Work Phone: Start: 04-24-2016 End: 06-20-2016 Lipid panel [AGGREGATE] *Lipid Profile CC PCP [facility] Work Phone: Start: 10-30-2015 End: 10-24-2015 *Hepatic Function Panel *Hepatic Function Panel [facility] Work Phone: Start: 10-30-2015 End: 10-24-2015 Lipid panel [AGGREGATE] *Lipid Profile CC PCP [facility] Work Phone: Start: 10-26-2015 End: 10-26-2015 Ecg routine ecg w/least 12 lds w/i&r EKG (In office) [facility] Work Phone: Start: 10-26-2015 End: 10-26-2015 Follow Up Appt 6 months Follow Up Appt 6 months [facility] Work Phone: Start: 10-26-2015 End: 10-26-2015 Follow Up Appt Other Follow Up Appt Other [facility] Work Phone: Start: 10-26-2015 End: 10-26-2015 PFM PFM [facility] Work Phone: Start: 06-08-2015 End: 04-30-2015 *Hepatic Function Panel *Hepatic Function Panel [facility] Work Phone: Start: 06-08-2015 End: 04-30-2015 Lipid panel [AGGREGATE] *Lipid Profile CC PCP [facility] Work Phone: Start: 05-02-2015 End: 05-02-2015 Follow Up Appt 6 months Follow Up Appt 6 months [facility] Work Phone: Start: 05-02-2015 End: 05-02-2015 MMM MMM [facility] Work Phone: Start: 09-25-2014 End: 11-07-2014 *Hepatic Function Panel *Hepatic Function Panel [facility] Work Phone: Start: 09-25-2014 End: 09-25-2014 Ecg routine ecg w/least 12 lds w/i&r EKG (In office) [facility] Work Phone: Start: 09-25-2014 End: 09-25-2014 Follow Up Appt 6 months Follow Up Appt 6 months [facility] Work Phone: Start: 09-25-2014 End: 11-07-2014 Lipid panel [AGGREGATE] *Lipid Profile CC PCP [facility] Work Phone: Start: 09-25-2014 End: 09-25-2014 PFM PFM [facility] Work Phone: Start: 04-05-2014 End: 09-25-2014 *Hepatic Function Panel *Hepatic Function Panel [facility] Work Phone: Start: 04-05-2014 End: 04-05-2014 Follow Up Appt 6 months Follow Up Appt 6 months [facility] Work Phone: Start: 04-05-2014 End: 09-25-2014 Lipid panel [AGGREGATE] *Lipid Profile CC PCP [facility] Work Phone: Start: 04-05-2014 End: 04-05-2014 MMM MMM [facility] Work Phone: Start: 09-30-2013 End: 04-04-2014 *Hepatic Function Panel *Hepatic Function Panel [facility] Work Phone: Start: 09-30-2013 End: 04-05-2014 Follow Up Appt 6 months Follow Up Appt 6 months [facility] Work Phone: Start: 09-30-2013 End: 04-04-2014 Lipid panel [AGGREGATE] *Lipid Profile CC PCP [facility] Work Phone: Start: 09-30-2013 End: 04-05-2014 PFM PFM [facility] Work Phone: Start: 06-09-2013 End: 04-05-2014 *Hepatic Function Panel *Hepatic Function Panel [facility] Work Phone: Start: 06-09-2013 End: 04-05-2014 Lipid panel [AGGREGATE] *Lipid Profile [facility] Work Phone: Start: 10-09-2012 End: 12-28-2012 *Hepatic Function Panel *Hepatic Function Panel [facility] Work Phone: Start: 10-09-2012 End: 12-28-2012 Lipid panel [AGGREGATE] *Lipid Profile [facility] Work Phone: Start: 05-10-2012 End: 05-10-2012 *Hepatic Function Panel *Hepatic Function Panel [facility] Work Phone: Start: 05-10-2012 End: 05-10-2012 Follow Up Appt Other Follow Up Appt Other [facility] Work Phone: Start: 05-10-2012 End: 07-15-2012 Lipid panel [AGGREGATE] *Lipid Profile [facility] Work Phone: Start: 03-25-2012 End: 03-25-2012 aPTT *PTT-Partial Thromboplastin Time [facility] Work Phone: Start: 03-25-2012 End: 04-20-2012 Chest x-ray X-Ray, Chest, PA & Lateral [facility] Work Phone: Start: 03-25-2012 End: 03-25-2012 Ecg routine ecg w/least 12 lds w/i&r EKG (In office) [facility] Work Phone: Start: 03-25-2012 End: 03-25-2012 Follow Up Appt 2 months Follow Up Appt 2 months [facility] Work Phone: Start: 03-25-2012 End: 04-20-2012 INR Coag RelTime (PPP) *PT/INR [facility] Work Phone: Start: 03-25-2012 End: 03-25-2012 Left Heart Cath Left Heart Cath [facility] Work Phone: Start: 03-12-2012 End: 03-18-2012 *BMP *BMP [facility] Work Phone: Start: 03-12-2012 End: 03-18-2012 *CBC with Differential *CBC with Differential [facility] Work Phone: Start: 03-12-2012 End: 03-12-2012 24 hour holter monitor 24 hour holter monitor [facility] Work Phone: Start: 03-12-2012 End: 03-18-2012 aPTT *PTT-Partial Thromboplastin Time [facility] Work Phone: Start: 03-12-2012 End: 03-12-2012 Echocardiography Echocardiogram (complete) [facility] Work Phone: Start: 03-12-2012 End: 03-18-2012 Follow Up Appt 2 months Follow Up Appt 2 months [facility] Work Phone: Start: 03-12-2012 End: 03-18-2012 INR Coag RelTime (PPP) *PT/INR [facility] Work Phone: Start: 03-12-2012 End: 03-18-2012 Lipid panel [AGGREGATE] *Lipid Profile [facility] Work Phone: Start: 03-12-2012 End: 03-18-2012 Magnesium *Magnesium [facility] Work Phone: Start: 03-12-2012 End: 03-12-2012 Nuclear stress test -adenosine Nuclear stress test -adenosine [facility] Work Phone: Start: 03-12-2012 End: 03-18-2012 Thyroid stimulating hormone (TSH) *TSH [facility] Work Phone: Start: 03-12-2012 End: 03-18-2012 Thyroxine (T4) *T4 (Total) [facility] Work Phone: Patient Education [facility] [...] BE BASED ON THE PRIMARY CLINICAL RECORDS. [employer] provides no warranty or guarantee of the accuracy or completeness of information in this document.
== END | disposition home or self-care (01) ==
LOC: MTLAB 08:37
PROVIDERS: PCP Family Medicine; Referring Provider Family Medicine; Visit Provider Family Medicine
DX: I10 Essential (primary) hypertension (principal); E03.9 Hypothyroidism, unspecified
CPT/HCPCS: 36415; 80048; 82043; 82570; 84443

== ENCOUNTER → 2024-01-21 | Outpatient (CLI) | payer MEDICARE, BC, SELFPAY ==
--- NOTE | 2024-01-21 07:58 | BI_ITS ---
MAMMOGRAPHY - BILATERAL SCREENING REASON FOR EXAM: Female, 88 years old. Routine annual screening examination. PERTINENT HISTORY: Personal history of breast cancer. Prior right lumpectomy. Remote right excisional breast biopsy. TECHNIQUE: Digital bilateral breast silvino (3D mammographic acquisition) in the CC and MLO projections. 2-D mediolateral oblique (MLO) and craniocaudad (CC) views of both breasts were obtained. CAD: Full Field Digital Mammography with Computer Added Detection was performed. COMPARISON: Comparison is made with prior study dated November 20, 2022 and November 19, 2021. FINDINGS: Breast Composition: There are scattered areas of fibroglandular density. There are no dominant masses or suspicious calcifications. Stable scattered bilateral microcalcifications. Stable small benign-appearing bilateral axillary lymph nodes. No other significant abnormalities are identified. There has been no significant change since the prior study. BI/SCRN MAMM (CAD)W/SILVINO BILAT IMPRESSION: Stable bilateral screening mammogram. Yearly follow-up mammogram recommended. (A) ASSESSMENT CATEGORY: BIRADS Category 2: Benign. A letter regarding these results will be sent to the patient by the facility within 30 days. Approximately 10% of breast cancers are not detected by mammography. A normal mammogram should not delay biopsy of a clinically suspicious abnormality. [id number] Electronically Signed: Franco Hurtado MD at 9:43 EDT ,
--- OUTSIDE RECORDS SUMMARY | 2024-01-21 08:19 | XMS RPT_ITS | CCD ---
Author Name Unknown Address [facility] [employer] [facility] [address] [place] [address] Organization [facility] Care Team Providers Care Director Of Vital Statistics Name Role Phone Gerson Walker Unavailable Unavailable FREDI Anthony, Shelly Maguire Unavailable Gerson Walker Unavailable Unavailable Gerson Walker Unavailable Unavailable Yareli Bradley Unavailable Allergies Allergy Classification Reported Allergen(s) Allergy Type Date of Onset Reaction(s) Facility (4 sources) Sulfonamides (Antibiotic) drug [facility] Work Phone: Medications Completed/Discontinued Medications Medication Drug Class(es) Dates Sig (Normalized) Sig (Original) amoxicillin 875 mg oral tablet (8 sources) Penicillin-class Antibacterial Start: 09-30-2013 End: 09-25-2014 AMOXICILLIN 875 MG TABS for sinus infection AMOXICILLIN [id number] Dominic Thao MD aspirin 81 mg oral tablet (8 sources) Nonsteroidal Anti-inflammatory Drug Start: 03-08-2012 take 1 tablet by mouth once daily ASPIRIN 81 MG TABS One tablet by mouth daily ASPIRIN [id number] Tahmina Mederos RN Problems Active Problems Problem Classification Problem Date Documented Date Episodic/Chronic Conduction disorders (4 sources) First degree atrioventricular block; Translations: [Atrioventricular block, first degree] Onset: 05-28-2015 05-28-2015 Chronic Coronary atherosclerosis and other heart disease (4 sources) Atherosclerotic heart disease of [place] coronary artery without angina pectoris; Translations: [Atherosclerotic heart disease of [place] coronary artery without angina pectoris] Onset: 05-10-2012 [...] 13:29-0400 BP Diastolic 76 mm[Hg] Harumi DeFinis [facility] Work Phone: 08-28-2017 13:29-0400 BP Systolic 142 mm[Hg] Harumi DeFinis [facility] Work Phone: 08-28-2017 13:29-0400 Height 168.91 cm Harumi DeFinis [facility] Work Phone: 08-28-2017 13:29-0400 Pulse (Heart Rate) 64 /min Harumi DeFinis [facility] Work Phone: 08-28-2017 13:29-0400 Respiratory Rate 18 /min Harumi DeFinis [facility] Work Phone: 08-28-2017 13:29-0400 Weight 90.72 kg Harumi DeFinis [facility] Work Phone: 12-22-2016 14:15-0500 BMI (Body Mass Index) 31.92 kg/m2 Shelly Anthony PA-C [facility] Work Phone: 12-22-2016 14:15-0500 BP Diastolic 60 mm[Hg] Shelly Anthony PA-C [facility] Work Phone: 12-22-2016 14:15-0500 BP Systolic 112 mm[Hg] Shelly Anthony PA-C [facility] Work Phone: 12-22-2016 14:15-0500 BSA (Body Surface Area) 2.02 m2 Shelly Anthony PA-C [facility] Work Phone: 12-22-2016 14:15-0500 Pulse (Heart Rate) 72 /min Shelly Anthony PA-C [facility] Work Phone: 12-22-2016 14:15-0500 Respiratory Rate 20 /min Shelly Anthony PA-C [facility] Work Phone: 12-22-2016 14:15-0500 Weight 91.08 kg Shelly Anthony PA-C [facility] Work Phone: 10-26-2015 13:55-0500 Heart rate 67 /min Harumi DeFinis [facility] Work Phone: 03-25-2012 15:34-0400 Heart rate 424 ms Harumi DeFinis [facility] Work Phone: 03-12-2012 13:20-0400 Height 168.91 cm Shelly Anthony PA-C [facility] Work Phone: Procedures Date Procedure [...] Author Start: 02-24-2018 End: 02-24-2018 Appointment Appointment [facility] Work Phone: Start: 08-28-2017 End: 08-28-2017 *Hepatic Function Panel *Hepatic Function Panel [facility] Work Phone: Start: 08-28-2017 End: 08-28-2017 Follow Up Appt 6 months Follow Up Appt 6 months [facility] Work Phone: Start: 08-28-2017 End: 08-28-2017 Lipid panel [AGGREGATE] *Lipid Profile CC PCP [facility] Work Phone: Start: 08-28-2017 End: [...] 9 months Follow Up Appt 9 months [facility] Work Phone: Start: 12-22-2016 End: 12-22-2016 Lipid panel [AGGREGATE] *Lipid Profile CC PCP [facility] Work Phone: Start: 12-22-2016 End: 12-22-2016 PFM PFM [facility] Work Phone: Start: 06-23-2016 End: 06-23-2016 Follow Up Appt 6 months Follow Up Appt 6 months [facility] Work Phone: Start: 06-23-2016 End: 06-23-2016 MMM MMM [facility] Work Phone: Start: 06-09-2016 End: 06-25-2016 *Hepatic Function Panel *Hepatic Function Panel [facility] Work Phone: Start: 06-09-2016 End: 06-25-2016 Lipid panel [AGGREGATE] *Lipid Profile CC PCP [facility] Work Phone: Start: 04-24-2016 End: 06-20-2016 *Hepatic Function Panel *Hepatic Function Panel [facility] Work Phone: Start: 04-24-2016 End: 06-20-2016 Lipid panel [AGGREGATE] *Lipid Profile CC PCP [facility] Work Phone: Start: 10-30-2015 End: 10-24-2015 *Hepatic Function Panel *Hepatic Function Panel [facility] Work Phone: Start: 10-30-2015 End: 10-24-2015 Lipid panel [AGGREGATE] *Lipid Profile CC PCP [facility] Work Phone: Start: 10-26-2015 End: 10-26-2015 Ecg routine ecg w/least 12 lds w/i&r EKG (In office) [facility] Work Phone: Start: 10-26-2015 End: 10-26-2015 Follow Up Appt 6 months Follow Up Appt 6 months [facility] Work Phone: Start: 10-26-2015 End: 10-26-2015 Follow Up Appt Other Follow Up Appt Other [facility] Work Phone: Start: 10-26-2015 End: 10-26-2015 PFM PFM [facility] Work Phone: Start: 06-08-2015 End: 04-30-2015 *Hepatic Function Panel *Hepatic Function Panel [facility] Work Phone: Start: 06-08-2015 End: 04-30-2015 Lipid panel [AGGREGATE] *Lipid Profile CC PCP [facility] Work Phone: Start: 05-02-2015 End: 05-02-2015 Follow Up Appt 6 months Follow Up Appt 6 months [facility] Work Phone: Start: 05-02-2015 End: 05-02-2015 MMM MMM [facility] Work Phone: Start: 09-25-2014 End: 11-07-2014 *Hepatic Function Panel *Hepatic Function Panel [facility] Work Phone: Start: 09-25-2014 End: 09-25-2014 Ecg routine ecg w/least 12 lds w/i&r EKG (In office) [facility] Work Phone: Start: 09-25-2014 End: 09-25-2014 Follow Up Appt 6 months Follow Up Appt 6 months [facility] Work Phone: Start: 09-25-2014 End: 11-07-2014 Lipid panel [AGGREGATE] *Lipid Profile CC PCP [facility] Work Phone: Start: 09-25-2014 End: 09-25-2014 PFM PFM [facility] Work Phone: Start: 04-05-2014 End: 09-25-2014 *Hepatic Function Panel *Hepatic Function Panel [facility] Work Phone: Start: 04-05-2014 End: 04-05-2014 Follow Up Appt 6 months Follow Up Appt 6 months [facility] Work Phone: Start: 04-05-2014 End: 09-25-2014 Lipid panel [AGGREGATE] *Lipid Profile CC PCP [facility] Work Phone: Start: 04-05-2014 End: 04-05-2014 MMM MMM [facility] Work Phone: Start: 09-30-2013 End: 04-04-2014 *Hepatic Function Panel *Hepatic Function Panel [facility] Work Phone: Start: 09-30-2013 End: 04-05-2014 Follow Up Appt 6 months Follow Up Appt 6 months [facility] Work Phone: Start: 09-30-2013 End: 04-04-2014 Lipid panel [AGGREGATE] *Lipid Profile CC PCP [facility] Work Phone: Start: 09-30-2013 End: 04-05-2014 PFM PFM [facility] Work Phone: Start: 06-09-2013 End: 04-05-2014 *Hepatic Function Panel *Hepatic Function Panel [facility] Work Phone: Start: 06-09-2013 End: 04-05-2014 Lipid panel [AGGREGATE] *Lipid Profile [facility] Work Phone: Start: 10-09-2012 End: 12-28-2012 *Hepatic Function Panel *Hepatic Function Panel [facility] Work Phone: Start: 10-09-2012 End: 12-28-2012 Lipid panel [AGGREGATE] *Lipid Profile [facility] Work Phone: Start: 05-10-2012 End: 05-10-2012 *Hepatic Function Panel *Hepatic Function Panel [facility] Work Phone: Start: 05-10-2012 End: 05-10-2012 Follow Up Appt Other Follow Up Appt Other [facility] Work Phone: Start: 05-10-2012 End: 07-15-2012 Lipid panel [AGGREGATE] *Lipid Profile [facility] Work Phone: Start: 03-25-2012 End: 03-25-2012 aPTT *PTT-Partial Thromboplastin Time [facility] Work Phone: Start: 03-25-2012 End: 04-20-2012 Chest x-ray X-Ray, Chest, PA & Lateral [facility] Work Phone: Start: 03-25-2012 End: 03-25-2012 Ecg routine ecg w/least 12 lds w/i&r EKG (In office) [facility] Work Phone: Start: 03-25-2012 End: 03-25-2012 Follow Up Appt 2 months Follow Up Appt 2 months [facility] Work Phone: Start: 03-25-2012 End: 04-20-2012 INR Coag RelTime (PPP) *PT/INR [facility] Work Phone: Start: 03-25-2012 End: 03-25-2012 Left Heart Cath Left Heart Cath [facility] Work Phone: Start: 03-12-2012 End: 03-18-2012 *BMP *BMP [facility] Work Phone: Start: 03-12-2012 End: 03-18-2012 *CBC with Differential *CBC with Differential [facility] Work Phone: Start: 03-12-2012 End: 03-12-2012 24 hour holter monitor 24 hour holter monitor [facility] Work Phone: Start: 03-12-2012 End: 03-18-2012 aPTT *PTT-Partial Thromboplastin Time [facility] Work Phone: Start: 03-12-2012 End: 03-12-2012 Echocardiography Echocardiogram (complete) [facility] Work Phone: Start: 03-12-2012 End: 03-18-2012 Follow Up Appt 2 months Follow Up Appt 2 months [facility] Work Phone: Start: 03-12-2012 End: 03-18-2012 INR Coag RelTime (PPP) *PT/INR [facility] Work Phone: Start: 03-12-2012 End: 03-18-2012 Lipid panel [AGGREGATE] *Lipid Profile [facility] Work Phone: Start: 03-12-2012 End: 03-18-2012 Magnesium *Magnesium [facility] Work Phone: Start: 03-12-2012 End: 03-12-2012 Nuclear stress test -adenosine Nuclear stress test -adenosine [facility] Work Phone: Start: 03-12-2012 End: 03-18-2012 Thyroid stimulating hormone (TSH) *TSH [facility] Work Phone: Start: 03-12-2012 End: [...] BE BASED ON THE PRIMARY CLINICAL RECORDS. [employer] provides no warranty or guarantee of the accuracy or completeness of information in this document.
== END | disposition home or self-care (01) ==
LOC: OPBI 07:58
PROVIDERS: PCP Family Medicine; Referring Provider Family Medicine; Visit Provider Family Medicine
DX: Z12.31 Encounter for screening mammogram for malignant neoplasm of breast (principal); Z85.3 Personal history of malignant neoplasm of breast
CPT/HCPCS: 77063; 77067

== ENCOUNTER → 2025-01-27 | Outpatient (CLI) | payer MEDICARE, BC, SELFPAY ==
--- NOTE | 2025-01-27 08:14 | BI_ITS ---
EXAM: SCRN MAMM (CAD)W/SILVINO BILAT 01/27/2025 CLINICAL HISTORY: F, Age 89 y/o, presents for annual screening mammogram. Personal history of left breast cancer in 1989 status post lumpectomy. TECHNIQUE: Bilateral screening digital breast tomosynthesis with 2D and 3D images. Computer aided detection. COMPARISON: Prior exam(s) dated 01/21/2024. FINDINGS: TISSUE DENSITY: The breast tissue is composed of scattered area of fibroglandular density. Bilateral Breast Mammographic Findings: No significant masses, calcifications or other abnormalities are identified. BI/SCRN MAMM (CAD)W/SILVINO BILAT IMPRESSION: There is no mammographic evidence of malignancy. OVERALL FINAL ASSESSMENT: BIRADS 1 NEGATIVE. RECOMMENDATION: Routine annual follow-up in 1 Year A letter with findings and recommendations will be mailed to the patient. Reading Location: [id number]
== END | disposition home or self-care (01) ==
LOC: OPBI 08:13
PROVIDERS: PCP Family Medicine; Referring Provider Family Medicine; Visit Provider Family Medicine
DX: Z12.31 Encounter for screening mammogram for malignant neoplasm of breast (principal); Z85.3 Personal history of malignant neoplasm of breast
CPT/HCPCS: 77063; 77067

== ENCOUNTER → 2025-07-28 | Outpatient (CLI) | payer MEDICARE, BC, SELFPAY ==
--- OUTSIDE RECORDS SUMMARY | 2025-07-28 08:42 | XMS RPT_ITS | CCD ---
Author Organization [facility] Care Team Providers Care Retoucher Name Role Phone Gerson Walker Y Unavailable Unavailable FREDI Anthony, Shelly Maguire Unavailable [phone] Gerson Walker Y Unavailable Unavailable Gerson Walker Y Unavailable Unavailable Yareli Bradley Unavailable Dr. Bry Walker Primary Care Provider Dr. Bry Walker Referring Provider Dr. Dominic Garcia Attending Provider Dr. Bry Walker Primary Care Provider Dr. Bry Walker Referring Provider [phone] MARGARITO Long Attending Provider Dr. Bry Walker Primary Care Provider Dr. Bry Walker Referring Provider MARGARITO Long Attending Provider Bry Walker Referring Unavailable Bry Walker Attending Unavailable Bry Walker Primary Care Unavailable Dr. Bry Walker MD Primary Care Provider Dr. Bry Walker MD Attending Provider [phone] Dr. Bry Walker MD Referring Provider Allergies Allergy Classification Reported Allergen(s) Allergy Type Date of Onset Reaction(s) Facility (4 sources) Sulfonamides (Antibiotic) [facility] [address] [facility]: (8 sources) Sulfonamides (Antibiotic); Translations: [Sulfa (Sulfonamide Antibiotics)] Allergy to substance 1 [facility] Medications Current Medications Medication Drug Class(es) Dates Sig (Normalized) Sig (Original) aspirin 81 mg chewable tablet (15 sources) Nonsteroidal Anti-inflammatory Drug Start: 03-25-2016 take 1 tablet by mouth once daily Aspirin 81 MG tablet,chewable Active 81 mg PO DAILY@08March 25, 2016 12:00am Start: 03-08-2012 take 1 tablet by ulpe th once daily ASPIRIN 81 MG TABS One tablet by mouth daily ASPIRIN [id number] Tahmina Mederos RN Start: 03-08-2012 take 1 tablet by lupe th once daily ASPIRIN EC 81 MG TBEC One tablet by mouth daily ASPIRIN [id number] Gerson Walker pravastatin sodium 40 mg oral tablet (20 sources) HMG-CoA Reductase Inhibitor Start: 07-16-2012 End: 02-08-2024 take 1 tablet by mouth at bedtime Pravastatin 40 mg tablet Active 0 .ROUTE .COMPLEX February 08, 2024 1:41pm TAKE 1 TABLET BY MOUTH AT BEDTIME Start: 03-08-2012 take 1 tablet by lupe th once daily at bedtime PRAVASTATIN SODIUM 20 MG TABS One tablet by mouth daily @ bedtime PRAVASTATIN SODIUM [id number] Tahmina Mederos RN propranolol hydrochloride 40 mg oral tablet (20 sources) beta-Adrenergic Jeffery Start: 03-08-2012 End: 01-31-2025 take 1 tablet by mouth once daily Propranolol 40 mg tablet Active 0 .ROUTE .COMPLEX January 31, 2025 3:41pm 40 MG ORALLY DAILY ramipril 10 mg oral capsule (20 sources) Angiotensin Converting Enzyme Inhibitor Start: 11-13-2023 take 5 mg by mouth once daily at bedtime Ramipril 10 mg capsule Active 10 mg PO DAILY November 13, 2023 12:14pm 5mg qhs Start: 11-13-2023 take 1 capsule by mo uth once daily Ramipril 5 mg capsule Active 5 mg PO DAILY November 13, 2023 1:00am Start: 09-11-2021 End: 11-13-2023 take 1 capsule by mouth once daily Ramipril 10 mg capsule Discontinued 10 mg PO DAILY September 10, 2022 2:05pm November 13, 2023 12:14pm Start: 09-12-2020 End: 11-03-2021 take 1 capsule by mouth once daily Ramipril 5 mg capsule Discontinued 5 mg PO DAILY August 02, 2021 10:16am September 11, 2021 1:38pm Start: 03-12-2012 End: 09-12-2020 take 1 capsule by mouth once daily Ramipril 2.5 mg capsule Discontinued 2.5 mg PO DAILY March 22, 2020 10:31am September 12, 2020 3:26pm levothyroxine sodium 0.15 mg oral tablet (11 sources) l-Thyroxine Start: 03-08-2012 take 1 tablet by mouth once daily Levothyroxine 150 MCG tablet Active 150 ug PO DAILY March 25, 2016 12:00am Completed/Discontinued Medications Medication Drug Class(es) Dates Sig (Normalized) Sig (Original) amoxicillin 875 mg oral tablet (8 sources) Penicillin-class Antibacterial Start: 09-30-2013 End: 09-25-2014 AMOXICILLIN 875 MG TABS for sinus infection AMOXICILLIN [id number] Dominic Garcia MD CALCIUM-MAGNESIUM TABS (8 sources) Start: 03-08-2012 take 1 tablet by mouth once daily PORFIRIO/MAG TABS One tablet by mouth daily CALCIUM-MAGNESIUM TABS [id number] Tahmina Mederos RN Start: 03-08-2012 End: 09-25-2014 take 1 tablet by mouth once daily PORFIRIO/MAG TABS One tablet by mouth daily CALCIUM-MAGNESIUM TABS [id number] Shelly Anthony PA-C cephalexin 500 mg oral capsule (7 sources) Cephalosporin Antibacterial Start: 03-25-2016 End: 02-24-2018 take 1 capsule by mouth every six hours Cephalexin 500 MG capsule Discontinued 500 mg PO EVERY 6 HOURS 40 March 25, 2016 12:00am February 24, 2018 2:47pm cholecalciferol 0.025 mg oral tablet (7 sources) Vitamin D Start: 03-25-2016 End: 09-26-2022 take 1 tablet by mouth once daily Cholecalciferol (Vitamin D3) 1,000 UNIT tablet Discontinued 1000 U PO DAILY March 25, 2016 12:00am September 26, 2022 2:06pm fish oil (4 sources) Start: 09-30-2013 take 1 tablet by mouth once daily FISH OIL CAPS One tablet by mouth daily OMEGA-3 FATTY ACIDS [facility] [id number] Dominic Garcia MD Fish Oil-Dha-Epa (6 sources) Start: 03-25-2016 End: 09-26-2022 Fish Oil-Dha-Epa Discontinued 1 EACH PO DAILY March 25, 2016 12:00am September 26, 2022 2:06pm Start: 03-25-2016 End: 09-26-2022 Fish Oil-Dha-Epa Discontinue d 1 EACH PO DAILY March 24, 2016 11:00pm September 26, 2022 1:06pm Start: 03-25-2016 Fish Oil-Dha-E pa Active 1 EACH PO DAILY March 25, 2016 12:00am Fish Oil-Dha-Epa 1 EACH capsule (1 source) Start: 03-25-2016 End: 09-26-2022 take 1 capsule by mouth once daily Fish Oil-Dha-Epa 1 EACH capsule Discontinued 1 NMA PO DAILY March 25, 2016 12:00am September 26, 2022 2:06pm ISOSORBIDE MONONITRATE (8 sources) Start: 03-25-2012 End: 05-10-2012 take 1 tablet by mouth once daily IMDUR 30 MG [id number] One half tablet by mouth daily ISOSORBIDE MONONITRATE [id number] Manuel Beckford MD Start: 03-25-2012 End: 05-10-2012 take 1 tablet by mouth once daily IMDUR 30 MG [id number] One half tablet by mouth daily ISOSORBIDE MONONITRATE [id number] Manuel Beckford MD Start: 03-25-2012 take 1 tablet by lupe th once daily IMDUR 30 MG [id number] One half tablet by mouth daily ISOSORBIDE MONONITRATE [id number] Manuel Beckford MD meloxicam 7.5 mg oral tablet (8 sources) Nonsteroidal Anti-inflammatory Drug Start: 04-05-2014 End: 05-02-2015 take 1 tablet by mouth once daily MOBIC 7.5 MG TABS One tablet by mouth daily MELOXICAM [id number] Dominic Garcia MD nystatin 830018 unt/ml topical cream (8 sources) Polyene Antifungal Start: 02-15-2012 End: 03-12-2012 NYSTATIN 543103 UNIT/GM CREA Apply as directed three times a day NYSTATIN [id number] Tahmina Mederos RN microencapsulated potassium chloride 20 meq extended release oral tablet (20 sources) Start: 02-24-2018 End: 09-12-2020 Potassium Chloride (Klor-Con M20) 20 mEq tablet,ER particles/braeden ls Discontinued 20 meq PO TWICE A DAY 180 April 27, 2018 5:56pm March 11, 2019 2:07pm give with food (meal/snack) Start: 03-25-2016 End: 02-24-2018 take 20 mEq by mouth once daily Potassium Chloride Dis continued 20 MEQ PO DAILY March 25, 2016 12:00am February 24, 2018 2:47pm Start: 03-08-2012 take 1 tablet by lupe twice daily POTASSIUM CHLORIDE RUDY ER 20 MEQ CR-TABS One tablet by mouth twice daily POTASSIUM CHLORIDE RUDY CR [id number] Dominic Garcia MD Potassium Chloride 20 MEQ packet (1 source) Start: 03-25-2016 End: 02-24-2018 take 20 mEq by mouth once daily Potassium Chloride 20 MEQ packet Discontinued 20 meq PO DAILY March 25, 2016 12:00am February 24, 2018 2:47pm SITagliptin 100 mg oral tablet (14 sources) Dipeptidyl Peptidase 4 Inhibitor Start: 03-08-2012 End: 02-24-2018 take 1 tablet by mouth once daily Sitagliptin Phosphate 100 MG tablet Discontinued 100 mg PO DAILY March 25, 2016 12:00am February 24, 2018 2:46pm vitamin e 1000 unt oral tablet (8 sources) Start: 03-08-2012 End: 03-12-2012 take 1 tablet by mouth once daily VITAMIN E 1000 UNIT CAPS One tablet by mouth daily VITAMIN E [id number] Tahmina Mederos RN Problems Active Problems Problem Classification Problem Date Documented Date Episodic/Chronic Conduction disorders (18 sources) First degree atrioventricular block; Translations: [ECG: partial atrioventricular block - long DC] Onset: 5 05-28-2015 Chronic Coronary atherosclerosis and other heart disease (20 sources) Atherosclerotic heart disease of [place] coronary artery without angina pectoris; Translations: [Coronary arteriosclerosis] Onset: 2 05-10-2012 Chronic Diabetes mellitus without complication (11 sources) Diabetes mellitus; Translations: [Type 2 diabetes mellitus without complications] Onset: 2 03-08-2012 Chronic Disorders of lipid metabolism (20 sources) Hyperlipidemia; Translations: [Hypercholesterolemia] Onset: 2 07-16-2012 Chronic Essential hypertension (15 sources) Hypertensive disorder; Translations: [Essential hypertension] Onset: 2 03-08-2012 Chronic Other aftercare (7 sources) Long-term current use of drug therapy; Translations: [Other senior care (current) drug therapy] 02-22-2018 Episodic Other and ill-defined heart disease (11 sources) Heart disease; Translations: [Other ill-defined heart diseases] Onset: 2 03-15-2012 Chronic Other nutritional; endocrine; and metabolic disorders (2 sources) Body mass index (BMI) 30.0-30.9, adult; Translations: [Body mass index (BMI) 30.0-30.9, adult] Onset: 3 09-30-2013 Chronic Other nutritional; endocrine; and metabolic disorders (4 sources) Body mass index (BMI) 31.0-31.9, adult; Translations: [Body mass index (BMI) 31.0-31.9, adult] Onset: 4 12-22-2016 Chronic Unclassified (10 sources) Body mass index (BMI) 32.0-32.9, adult; Translations: [Body mass index (BMI) 31.0-31.9, adult] Onset: 3 10-26-2015 Chronic Unclassified (12 sources) Electrocardiogram abnormal; Translations: [Abnormal electrocardiogram [ECG] [EKG]] Onset: 2 03-08-2012 Episodic Unclassified (8 sources) Long-term drug therapy; Translations: [Long-term (current) use of other medications] Onset: 2 07-16-2012 Past or Other Problems Problem Classification Problem Date Documented Da te Episodic/Chronic Residual codes; unclassified (2 sources) Family history of stroke; Translations: [Family history of stroke] 09-25-2014 Episodic Residual codes; unclassified (2 sources) FH: Hypertension; Translations: [Family history of ischemic heart disease and other diseases of the circulatory system] 09-25-2014 Episodic Unclassified (12 sources) Body mass index (BMI) 29.0-29.9, adult; Translations: [FH: Hypertension] Onset: 09-30-2013 Resolved: 10-24-2015 04-05-2014 Episodic Unclassified (7 sources) steriotactic 03-08-2019 Comment on above: biopsy Results Test Name Value Interpretation Reference Range Facility Breast imaging reportOrdered By: Sivan Bell on 01-27-2025 Study report [facility] Imaging Services [address] [place], [place] [address] SCRN MAMM (CAD)W/SILVINO BILAT MR#: [id number] Acct: [id number] Name: LILIAN FOLEY Rep #: [id number] : 1935 F 89 From: Doreen Bell MD PCP: Dr. Bry Walker MD Status: [facility] Study:SCRN MAMM (CAD)W/SILVINO BILAT Date of Exa m: 01/27/25 Exam# [id number] Ordering Dr: Simba Walker MD EXAM: SCRN MAMM (CAD)W/SILVINO BILAT 01/27/2025 CLINICAL HISTORY: F, Age 89 y/o, presents for annual screening mammogram. Personal history of left breast cancer in 1989 status post lumpectomy. TECHNIQUE: Bilateral screening digital breast tomosynthesis with 2D and 3D images. Computeraided detection. COMPARISON: Prior exam(s) dated 01/21/2024. FINDINGS: TISSUE DENSITY: The breast tissue is composed of scattered area of fibroglandular density. Bilateral Breast Mammographic Findings: No significant masses, calcifications or other abnormalities are identified. BI/SCRN MAMM (CAD)W/SILVINO BILAT IMPRESSION: There is no mammographic evidence of malignancy. OVERALL FINAL ASSESSMENT: BIRADS 1 NEGATIVE. RECOMMENDATION: Routine annual follow-up in 1 Year A letter with findings and recommendations will be mailed to the patient. Reading Location: [facility] CC: Dr. Bry Walker MD ~ Dough Maker: Signed [facility] SCRN MAMM (CAD)W/SILVINO BILATo n 01-27-2025 SCRN MAMM (CAD)W/SILVINO BILAT [facility] Imaging Services [address] [place], [place] [address] SCRN MAMM (CAD)W/SILVINO BILAT MR#: [id number] Acct: [id number] Name: LILIAN FOLEY Rep #: [id number] : 1935 F 89 From: Sivan Bell MD PCP: Dr. Bry Walker MD Status: [facility] CLI Study: SCRN MAMM (CAD)W/SILVINO BILAT Date of Exam: 01/08 12/03 Exam# [id number] Ordering Dr: Bry Walker MD EXAM: SCRN MAMM (CAD)W/SILVINO BILAT 01/27/2025 CLINICAL HISTORY: F, Age 89 y/o, presents for annual screening mammogram. Personal history of left breast cancer in 1989 status post lumpectomy. TECHNIQUE: Bilateral screening digital breast tomosynthesis with 2D and 3D images. Computer aided detection. COMPARISON: Prior exam(s) dated 01/21/2024. FINDINGS: TISSUE DENSITY: The breast tissue is composed of scattered area of fibroglandular density. Bilateral Breast Mammographic Findings: No significant masses, calcifications or other abnormalities are identified. BI/SCRN MAMM (CAD)W/SILVINO BILAT IMPRESSION: There is no mammographic evidence of malignancy. OVERALL FINAL ASSESSMENT: BIRADS 1 NEGATIVE. RECOMMENDATION: Routine annual follow-up in 1 Year A letter with findings and recommendations will be mailed to the patient. Reading Location: [facility] CC: Dr. Bry Walker MD Dough Maker: Signed Normal [facility] Basophil percentageOrdered B y: Bry Walker on 01-19-2024 Chloride [Moles/Vol] 107 mmol/L 98-107 [facility] Glucose [Mass/Vol] 136 mg/dL 74-106 [facility] Comment on above: Fasting Glucose resu lt greater than or equal to 126 mg/dL suggests DIABETES MELLITUS per A.D.A. criteria. Potassium [Moles/Vol] 3.6 mmol/L 3.5-5.1 [facility] Sodium [Moles/Vol] 139 mmol/L 136-145 [facility] Laboratory - Chemistry and C hemistry - challengeOrdered By: Bry Walker on 01-19-2024 CO2 [Moles/Vol] 26.0 mmol/L 21.0-32.0 [facility] Urea nitrogen/Creatinine [Mass ratio] 15.8 mg/mg 10-20 [facility] No Panel InformationOrdered By: Bry Walker on 01-19-2024 Estimated GFR (MDRD) Amer 92 mL/min >60 [facility] Comment on above: GFR Calc Estimated GFR (MDRD) Non-Af Amer 76 mL/min >60 [facility] Comment on above: Non- GFR Calc Urine Microalbumin/Creatinin e Ratio 13.6 mg/g CRE <30 [facility] Serum or plasma calcium jakub urement (mass/volume)Ordered By: Bry Walker on 01-19-2024 Calcium [Mass/Vol] 8.7 mg/dL 8.5-10.1 [facility] Serum or plasma creatinine m easurement (mass/volume)Ordered By: Bry Walker on 01-19-2024 Creatinine [Mass/Vol] 0.76 mg/dL 0.55-1.02 [facility] Comment on above: The validity of the calculated GFR & GFRAA in patients over 70 years has not been determined. Clinical correlation is essential. Serum or plasma thyroid stim ulating hormone (TSH) measurement (units/volume)Ordered By: Bry Walker on 01-19-2024 TSH Qn 1.94 uIU/mL 0.358-3.74 [facility] Serum or plasma urea nitroge n measurement (mass/volume)Ordered By: Bry Walker on 01-19-2024 Urea nitrogen [Mass/Vol] 12 mg/dL 7-18 [facility] Thin prep Papanicolaou smear with manual screeningOrdered By: Bry Walker on 01-19-2024 Thin prep Papanicolaou smear with manual screening 6 5-15 [facility] Thin prep Papanicolaou smear with manual screening 17.9 mg/L NO RANGE EST. [facility] Urine creatinine measurement (mass/volume)Ordered By: Bry Walker on 01-19-2024 Creatinine (U) [Mass/Vol] 132.00 mg/dL NO RANGE EST. [facility] Basophil percentageOrdered B y: Dominic Garcia on 11-11-2023 Bilirubin [Mass/Vol] 0.70 mg/dL 0.20-1.00 [facility] Comment on above: For patients on eltr ombopag therapy, use of Dimension [place] TBIL is not recommended. Cholesterol [Mass/Vol] 148 mg/dL <200 [facility] Comment on above: <200 mg/dL Desirable 200-240 mg/dL Borderline >240 mg/dL High Risk Protein [Mass/Vol] 7.7 g/dL 6.4-8.2 [facility] Triglyceride [Mass/Vol] 71 mg/dL <199 [facility] Comment on above: The drugs N-Acetylcy steine and Metamizole may falsely depress this assay.Serum Triglycerides Reference Interval Normal <150 mg/dL Borderline high 150 - 199 mg/dL High 200 - 499 mg/dL Very High > or = 500 mg/dL Direct bilirubinOrdered By: Dominic Garcia on 11-11-2023 Bilirubin.direct [Mass/Vol] 0.17 mg/dL 0.00-0.30 [facility] Laboratory - Chemistry and C hemistry - challengeOrdered By: Dominic Garcia on 11-11-2023 ALP [Catalytic activity/Vol] 88 U/L 45-117 [facility] ALT [Catalytic activity/Vol] 29 U/L 13-56 [facility] Globulin (S) [Mass/Vol] 4.6 g/dL 2.2-4.2 [facility] Serum or plasma albumin jakub urement (mass/volume)Ordered By: Dominic Garcia on 11-11-2023 Albumin [Mass/Vol] 3.1 g/dL 3.2-5.0 [facility] Serum or plasma cholesterol in HDL measurement (mass/volume)Ordered By: Dominic Garcia on 11-11-2023 Cholesterol in HDL [Mass/Vol] 72 mg/dL >40 [facility] Comment on above: The drugs N-Acetylcy steine and Metamizole may falsely depress this assay. Reference Range HDL <40 mg/dL Low HDL Cholesterol HDL >or= 60 mg/dL High HDL Cholesterol Serum or plasma cholesterol in VLDL measurement (mass/volume)Ordered By: Dominic Garcia on 11-11-2023 Cholesterol in VLDL [Mass/Vol] 14 mg/dL 5-40 [facility] Serum or plasma low density lipoprotein (LDL) cholesterol measurement (mass/volume)Ordered By: Dominic Garcia on 11-11-2023 Cholesterol in LDL [Mass/Vol] 62 mg/dL 0-130 [facility] Thin prep Papanicolaou smear with manual screeningOrdered By: Dominic Garcia on 11-11-2023 Thin prep Papanicolaou smear with manual screening 30 U/L 15-37 [facility] Absolute lymphocyte countOrd ered By: Bry Walker on 07-24-2023 Lymphocytes Auto (Unsp spec) [#/Vol] 2.00 10*3/uL 0.83-4.51 [facility] Basophil percentageOrdered B y: Bry Walker on 07-24-2023 Basophils/100 WBC (Bld) 1.0 % 0-1 [facility] Bilirubin [Mass/Vol] 0.60 mg/dL 0.20-1.00 [facility] Comment on above: For patients on eltr ombopag therapy, use of Dimension [place] TBIL is not recommended. Chloride [Moles/Vol] 107 mmol/L 98-107 [facility] Eosinophils/100 WBC (Bld) 2.1 % 0-5 [facility] Glucose [Mass/Vol] 117 mg/dL 74-106 [facility] Comment on above: Fasting Glucose resu lt from 100 to 125 mg/dL suggests IMPAIRED HOMEOSTASIS per A.D.A. criteria. Neutrophils (Bld) [#/Vol] 3.2 10*3/uL 2.0-7.7 [facility] Neutrophils/100 WBC (Bld) 51.3 % 47-70 [facility] Potassium [Moles/Vol] 4.3 mmol/L 3.5-5.1 [facility] Protein [Mass/Vol] 7.7 g/dL 6.4-8.2 [facility] Sodium [Moles/Vol] 137 mmol/L 136-145 [facility] WBC (Bld) [#/Vol] 6.2 10*3/uL 4.4-11.0 [facility] Blood erythrocytes count (nu mber/volume)Ordered By: Bry Walker on 07-24-2023 RBC (Bld) [#/Vol] 4.13 10*6/uL 4.2-5.4 [facility] Blood hemoglobin measurement (mass/volume)Ordered By: Bry Walker on 07-24-2023 Hemoglobin (Bld) [Mass/Vol] 12.6 g/dL 12.0-15.0 [facility] Blood lymphocytes/100 leukoc ytesOrdered By: Bry Walker on 07-24-2023 Lymphocytes/100 WBC (Bld) 32.2 % 19-41 [facility] Blood monocytes/100 leukocyt esOrdered By: Bry Walker on 07-24-2023 Monocytes/100 WBC (Bld) 13.2 % 0-10 [facility] Blood platelet mean volumeOr dered By: Bry Walker on 07-24-2023 Platelet mean volume (Bld) [Entitic vol] 12.3 fL 6.2-12.0 [facility] Determination of erythrocyte mean corpuscular volume (MCV)Ordered By: Bry Walker on 07-24-2023 MCV (RBC) [Entitic vol] 97.8 fL 81-99 [facility] Hematocrit Auto (Bld) [Volum e fraction]Ordered By: Bry Walker on 07-24-2023 Hematocrit (Bld) [Volume fraction] 40.4 % 37-47 [facility] Laboratory - Chemistry and C hemistry - challengeOrdered By: Bry Walker on 07-24-2023 ALP [Catalytic activity/Vol] 88 U/L 45-117 [facility] ALT [Catalytic activity/Vol] 16 U/L 13-56 [facility] CO2 [Moles/Vol] 27.0 mmol/L 21.0-32.0 [facility] Globulin (S) [Mass/Vol] 4.5 g/dL 2.2-4.2 [facility] Urea nitrogen/Creatinine [Mass ratio] 19.0 mg/mg 10-20 [facility] Laboratory - Hematology and Cell countsOrdered By: Bry Walker on 07-24-2023 Erythrocyte distribution width (RBC) [Entitic vol] 45.2 fL 35.1-43.9 [facility] Erythrocyte distribution width (RBC) [Ratio] 12.7 % 11.6-14.6 [facility] Immature granulocytes/100 WBC (Bld) 0.200 % 0.0-0.9 [facility] Comment on above: IG% - Immature Granu locytes (promyelocytes, myelocytes and metamyelocytes) > 1% indicates that a LEFT SHIFT is Present. MCH (RBC) [Entitic mass] 30.5 pg 27.0-32.0 [facility] Nucleated RBC/100 WBC (Bld) [Ratio] 0 % 0-5 [facility] MCHC Auto (RBC) [Mass/Vol]Or dered By: Bry Walker on 07-24-2023 MCHC (RBC) [Mass/Vol] 31.2 g/dL 32-36 [facility] No Panel InformationOrdered By: Bry Walker on 07-24-2023 Estimated GFR (MDRD) Amer 82 mL/min >60 [facility] Comment on above: GFR Calc Estimated GFR (MDRD) Non-Af Amer 68 mL/min >60 [facility] Comment on above: Non- GFR Calc Urine Microalbumin/Creatinin e Ratio 10.4 mg/g CRE <30 [facility] Platelets bldOrdered By: Honey Walker on 07-24-2023 Platelets (Bld) [#/Vol] 250 10*3/uL 150-450 [facility] Serum or plasma albumin jakub urement (mass/volume)Ordered By: Bry Walker on 07-24-2023 Albumin [Mass/Vol] 3.2 g/dL 3.2-5.0 [facility] Serum or plasma albumin/glob ulin mass ratioOrdered By: Bry Walker on 07-24-2023 Albumin/Globulin [Mass ratio] 0.7 {ratio} 0.9-2.4 [facility] Serum or plasma calcium jakub urement (mass/volume)Ordered By: Bry Walker on 07-24-2023 Calcium [Mass/Vol] 9.0 mg/dL 8.5-10.1 [facility] Serum or plasma creatinine m easurement (mass/volume)Ordered By: Bry Walker on 07-24-2023 Creatinine [Mass/Vol] 0.84 mg/dL 0.55-1.02 [facility] Comment on above: The validity of the calculated GFR & GFRAA in patients over 70 years has not been determined. Clinical correlation is essential. Serum or plasma urea nitroge n measurement (mass/volume)Ordered By: Bry Walker on 07-24-2023 Urea nitrogen [Mass/Vol] 16 mg/dL 7-18 [facility] Thin prep Papanicolaou smear with manual screeningOrdered By: Bry Walker on 07-24-2023 Thin prep Papanicolaou smear with manual screening 15 U/L 15- [facility] Thin prep Papanicolaou smear with manual screening 3 5- [facility] Thin prep Papanicolaou smear with manual screening 6.2 mg/L NO RANGE EST. [facility] Urine creatinine measurement (mass/volume)Ordered By: Bry Walker on 07-24-2023 Creatinine (U) [Mass/Vol] 59.60 mg/dL NO RANGE EST. [facility] Whole blood hemoglobin A1c/t otal hemoglobin ratio (mass fraction)Ordered By: Bry Walker on 07-24-2023 HbA1c (Bld) [Mass fraction] 6.2 % 3.8-5.6 [facility] Comment on above: Normal < 5.7 % Predi abetic 5.7 - 6.4 % Diabetic >or= 6.5 % Please note range changes. Basophil percentageOrdered B y: Dr. Garcia on 09-23-2022 Bilirubin [Mass/Vol] 0.60 mg/dL 0.20-1.00 [facility] Comment on above: For patients on eltr ombopag therapy, use of Dimension [place] TBIL is not recommended. Cholesterol [Mass/Vol] 164 mg/dL <200 [facility] Comment on above: <200 mg/dL Desirable 200-240 mg/dL Borderline >240 mg/dL High Risk Protein [Mass/Vol] 8.0 g/dL 6.4-8.2 [facility] Triglyceride [Mass/Vol] 101 mg/dL <199 [facility] Comment on above: The drugs N-Acetylcy steine and Metamizole may falsely depress this assay.Serum Triglycerides Reference Interval Normal <150 mg/dL Borderline high 150 - 199 mg/dL High 200 - 499 mg/dL Very High > or = 500 mg/dL Direct bilirubinOrdered By: Dr. Garcia on 09-23-2022 Bilirubin.direct [Mass/Vol] 0.14 mg/dL 0.00-0.30 [facility] - Chemistry and C hemistry - challengeOrdered By: Dr. Garcia on 09-23-2022 ALP [Catalytic activity/Vol] 92 U/L 45-117 [facility] ALT [Catalytic activity/Vol] 23 U/L 13-56 [facility] Globulin (S) [Mass/Vol] 4.7 g/dL 2.2-4.2 [facility] Serum or plasma albumin jakub urement (mass/volume)Ordered By: Dr. Garcia on 09-23-2022 Albumin [Mass/Vol] 3.3 g/dL 3.2-5.0 [facility] Serum or plasma cholesterol in HDL measurement (mass/volume)Ordered By: Dr. Garcia on 09-23-2022 Cholesterol in HDL [Mass/Vol] 67 mg/dL >40 [facility] Comment on above: The drugs N-Acetylcy steine and Metamizole may falsely depress this assay. Reference Range HDL <40 mg/dL Low HDL Cholesterol HDL >or= 60 mg/dL High HDL Cholesterol Serum or plasma cholesterol in VLDL measurement (mass/volume)Ordered By: Dr. Garcia on 09-23-2022 Cholesterol in VLDL [Mass/Vol] 20 mg/dL 5-40 [facility] Serum or plasma low density lipoprotein (LDL) cholesterol measurement (mass/volume)Ordered By: Dr. Garcia on 09-23-2022 Cholesterol in LDL [Mass/Vol] 77 mg/dL 0-130 [facility] Thin prep Papanicolaou smear with manual screeningOrdered By: Dr. Garcia on 09-23-2022 Thin prep Papanicolaou smear with manual screening 21 U/L 15-37 [facility] Basophil percentageon 2021 Bilirubin [Mass/Vol] 0.70 mg/dL 0.20-1.00 [facility] Work Phone: Comment on above: For patients on eltr ombopag therapy, use of Dimension [place] TBIL is not recommended. Cholesterol [Mass/Vol] 150 mg/dL <200 [facility] Work Phone: Comment on above: <200 mg/dL Desirable 200-240 mg/dL Borderline >240 mg/dL High Risk Protein [Mass/Vol] 7.6 g/dL 6.4-8.2 [facility] Work Phone: Triglyceride [Mass/Vol] 71 mg/dL <199 [facility] Work Phone: Comment on above: The drugs N-Acetylcy steine and Metamizole may falsely depress this assay.Serum Triglycerides Reference Interval Normal <150 mg/dL Borderline high 150 - 199 mg/dL High 200 - 499 mg/dL Very High > or = 500 mg/dL Chloride [Moles/Vol] 107 mmol/L 98-107 [facility] Work Phone: Glucose [Mass/Vol] 116 mg/dL 74-106 [facility] Work Phone: Comment on above: Fasting Glucose resu lt from 100 to 125 mg/dL suggests IMPAIRED HOMEOSTASIS per A.D.A. criteria. Potassium [Moles/Vol] 3.7 mmol/L 3.5-5.1 [facility] Work Phone: Sodium [Moles/Vol] 140 mmol/L 136-145 [facility] Work Phone: Direct bilirubinon 2 Bilirubin.direct [Mass/Vol] 0.16 mg/dL 0.00-0.30 [facility] Work Phone: Laboratory - Chemistry and C hemistry - challengeon 04-21-2022 ALP [Catalytic activity/Vol] 84 U/L 45-117 [facility] Work Phone: ALT [Catalytic activity/Vol] 21 U/L 13-56 [facility] Work Phone: Globulin (S) [Mass/Vol] 4.5 g/dL 2.2-4.2 [facility] Work Phone: CO2 [Moles/Vol] 27.0 mmol/L 21.0-32.0 [facility] Work Phone: Urea nitrogen/Creatinine [Mass ratio] 19.0 mg/mg 10-20 [facility] Work Phone: No Panel Informationon 04-21 Urine Microalbumin/Creatinin e Ratio 10.4 mg/g CRE <30 [facility] Work Phone: Estimated GFR (MDRD) Amer 89 mL/min >60 [facility] Work Phone: Comment on above: GFR Calc Estimated GFR (MDRD) Non-Af Amer 73 mL/min >60 [facility] Work Phone: Comment on above: Non- GFR Calc Thyroid Stimulating Hormone (TSH) 1.49 uIU/mL 0.358-3.74 [facility] Work Phone: Serum or plasma albumin jakub urement (mass/volume)on 04-21-2022 Albumin [Mass/Vol] 3.1 g/dL 3.2-5.0 [facility] Work Phone: Serum or plasma albumin/glob ulin mass ratioon 04-21-2022 Albumin/Globulin [Mass ratio] 0.7 {ratio} 0.9-2.4 [facility] Work Phone: Serum or plasma calcium jakub urement (mass/volume)on 04-21-2022 Calcium [Mass/Vol] 8.8 mg/dL 8.5-10.1 [facility] Work Phone: Serum or plasma cholesterol in HDL measurement (mass/volume)on 04-21-2022 Cholesterol in HDL [Mass/Vol] 61 mg/dL >40 [facility] Work Phone: Comment on above: The drugs N-Acetylcy steine and Metamizole may falsely depress this assay. Reference Range HDL <40 mg/dL Low HDL Cholesterol HDL >or= 60 mg/dL High HDL Cholesterol Serum or plasma cholesterol in VLDL measurement (mass/volume)on 04-21-2022 Cholesterol in VLDL [Mass/Vol] 14 mg/dL 5-40 [facility] Work Phone: Serum or plasma creatinine m easurement (mass/volume)on 04-21-2022 Creatinine [Mass/Vol] 0.79 mg/dL 0.55-1.02 [facility] Work Phone: Comment on above: The validity of the calculated GFR & GFRAA in patients over 70 years has not been determined. Clinical correlation is essential. Serum or plasma low density lipoprotein (LDL) cholesterol measurement (mass/volume)on 04-21-2022 Cholesterol in LDL [Mass/Vol] 75 mg/dL 0-130 [facility] Work Phone: Serum or plasma urea nitroge n measurement (mass/volume)on 04-21-2022 Urea nitrogen [Mass/Vol] 15 mg/dL 7-18 [facility] Work Phone: Thin prep Papanicolaou smear with manual screeningon 04-21-2022 Thin prep Papanicolaou smear with manual screening 18.6 mg/L NO RANGE EST. [facility] Work Phone: Thin prep Papanicolaou smear with manual screening 23 U/L 15-37 [facility] Work Phone: Thin prep Papanicolaou smear with manual screening 6 5-15 [facility] Work Phone: Urine creatinine measurement (mass/volume)on 04-21-2022 Creatinine (U) [Mass/Vol] 178.00 mg/dL NO RANGE EST. [facility] Work Phone: .Auto Diffon 04-20-2019 Ammonia (P) [Mass/Vol] 1.40 10 3/mcL High 0.15-1.00 [facility] ([place]) Comment on above: Performed By: #### C JAYLA, KARIME SULLIVAN #### [place] [id number] #### BMP, GFR #### [address] [address] Basophils (Bld) [#/Vol] 0.00 10 3/mcL Normal 0.00-0.19 [facility] ([place]) Comment on above: Performed By: #### C BC, ADIFF, ANEU #### [address] [address] #### BMP, GFR #### [address] [address] Basophils/100 WBC (Bld) 0.1 % Normal 0.0-2.5 [facility] ([place]) Comment on above: Performed By: #### C BC, ADIFF, ANEU #### [place] [address] #### BMP, GFR #### [address] [address] Eosinophils (Bld) [#/Vol] 0.00 10 3/mcL Normal 0.00-0.40 [facility] ([place]) Comment on above: Performed By: #### C BC, ADIFF, ANEU #### [place] [address] #### BMP, GFR #### [address] [address] Eosinophils/100 WBC (Bld) 0.0 % Normal 0.0-7.0 [facility] ([place]) Comment on above: Performed By: #### C BC, ADIFF, ANEU #### [place] [address] #### BMP, GFR #### [address] [address] Lymphocytes (Bld) [#/Vol] 1.10 10 3/mcL Normal 0.77-3.85 [facility] ([place]) Comment on above: Performed By: #### C BC, ADIFF, ANEU #### [place] [address] #### BMP, GFR #### [address] [address] Lymphocytes/100 WBC (Bld) 7.8 % Low 10.0-50.0 [facility] ([place]) Comment on above: Performed By: #### C BC, ADIFF, ANEU #### [address] [address] #### BMP, GFR #### [address] [address] Monocytes/100 WBC (Bld) 9.4 % Normal 1.7-13.0 [facility] ([place]) Comment on above: Performed By: #### C BC, ADIFF, ANEU #### [address] [address] #### BMP, GFR #### [address] [address] Neutrophils/100 WBC (Bld) 82.7 % High 37.0-80.0 [facility] ([place] Comment on above: Performed By: #### C BC, ADIFF, ANEU #### [address] [address] #### BMP, GFR #### [address] [address] .GFRon 04-20-2019 GFR Non- 70 ml/min/1.73sqm Normal [facility] ([place]) Comment on above: Result Comment: GFR Population mean for , Non- Americans Ages 20-29 = 116 mL/min/1.73 sq.m. Ages 30-39 = 107 mL/min/1.73 sq.m. Ages 40-49 = 99 mL/min/1.73 sq.m. Ages 50-59 = 93 mL/min/1.73 sq.m. Ages 60-69 = 85 mL/min/1.73 sq.m. Ages 70+ = 75 mL/min/1.73 sq.m. Chronic Kidney Disease: Less than 60 mL/min/1.73 square meters End Stage Renal Disease: Less than 15 mL/min/1.73 square meters Performed By: #### C BC, ADIFF, ANEU #### [address] [address] #### BMP, GFR #### [address] [address] GFR 84 ml/min/1.73sqm Normal [facility] ([place]) Comment on above: Result Comment: GFR Population mean for , Non- Americans Ages 20-29 = 116 mL/min/1.73 sq.m. Ages 30-39 = 107 mL/min/1.73 sq.m. Ages 40-49 = 99 mL/min/1.73 sq.m. Ages 50-59 = 93 mL/min/1.73 sq.m. Ages 60-69 = 85 mL/min/1.73 sq.m. Ages 70+ = 75 mL/min/1.73 sq.m. Chronic Kidney Disease: Less than 60 mL/min/1.73 square meters End Stage Renal Disease: Less than 15 mL/min/1.73 square meters Performed By: #### C LAURIE DICKERSON ANEU #### [place] [address] #### BMP, GFR #### [place] [address] .NEUABSon 04-20-2019 Neutrophils (Bld) [#/Vol] 12.20 10 3/mcL High 2.85-6.16 [facility] ([place] Comment on above: Performed By: #### C LAURIE DICKERSON ANEU #### [address] [address] #### BMP, GFR #### [place] [id number] BMPon 04-20-2019 Calcium [Mass/Vol] 8.4 mg/dL Normal 8.4-10.2 [facility] ([place]) Comment on above: Performed By: #### LAURIE HARE ANEU #### [address] [address] #### BMP, GFR #### [place] [id number] Chloride [Moles/Vol] 105 mmol/L Normal 98-107 [facility] ([place]) Comment on above: Performed By: #### C BC, ADIFF, ANEU #### [address] [address] #### BMP, GFR #### [address] [address] CO2 [Moles/Vol] 26 mmol/L Normal 23-31 [facility] ([place]) Comment on above: Performed By: #### C BC, ADIFF, ANEU #### [address] [address] #### BMP, GFR #### [address] [address] Creatinine [Mass/Vol] 0.79 mg/dL Normal 0.55-1.02 [facility] ([place]) Comment on above: Performed By: #### C BC, ADIFF, ANEU #### [place] [id number] #### BMP, GFR #### [address] [address] Electrolyte Balance 8.0 mEq/L Normal [facility] ([place]) Comment on above: Performed By: #### C BC, ADIFF, ANEU #### [address] [address] #### BMP, GFR #### [address] [address] Glucose [Mass/Vol] 165 mg/dL High 83-110 [facility] ([place]) Comment on above: Performed By: #### C BC, ADIFF, ANEU #### [address] [address] #### BMP, GFR #### [address] [address] Potassium [Moles/Vol] 4.8 mmol/L Normal 3.5-5.1 [facility] ([place]) Comment on above: Performed By: #### C BC, ADIFF, ANEU #### [address] [address] #### BMP, GFR #### [address] [address] Sodium [Moles/Vol] 139 mmol/L Normal 136-145 [facility] ([place]) Comment on above: Performed By: #### C BC, ADIFF, ANEU #### [address] [address] #### BMP, GFR #### [address] [address] Urea nitrogen [Mass/Vol] 15 mg/dL Normal 7-18 [facility] ([place]) Comment on above: Performed By: #### C BC, ADIFF, ANEU #### [address] [address] #### BMP, GFR #### [address] [address] Urea nitrogen/Creatinine [Mass ratio] 19 ratio Normal 7-27 [facility] ([place]) Comment on above: Performed By: #### C BC, LAURIE, ANEU #### [place] [address] #### BMP, GFR #### [address] [address] CBCon 04-20-2019 Erythrocyte distribution width (RBC) [Ratio] 12.8 % Normal 11.5-14.5 [facility] ([place]) Comment on above: Performed By: #### C BC, ANTHONYIFF, ANEU #### [place] [address] #### BMP, GFR #### [address] [address] Hematocrit (Bld) [Volume fraction] 29.9 % Low 37.0-47.0 [facility] ([place] Comment on above: Performed By: #### C BC, ADIFF, ANEU #### [address] [address] #### BMP, GFR #### [address] [address] Hemoglobin (Bld) [Mass/Vol] 10.1 G/dL Low 12.0-16.0 [facility] ([place] Comment on above: Performed By: #### C BC, ADIFF, ANEU #### [place] [address] #### BMP, GFR #### [address] [address] MCH (RBC) [Entitic mass] 31.6 pg High 27.0-31.2 [facility] ([place] Comment on above: Performed By: #### C BC, ADIFF, ANEU #### [place] [address] #### BMP, GFR #### [address] [address] MCHC (RBC) [Mass/Vol] 33.6 G/dL Normal 33.0-37.0 [facility] ([place]) Comment on above: Performed By: #### C JAYLA, ANTHONYIFF, ANEU #### [place] [address] #### BMP, GFR #### [address] [address] MCV (RBC) [Entitic vol] 94.1 fL High 80.0-94.0 [facility] ([place] Comment on above: Performed By: #### C BC, ADIFF, ANEU #### [place] [address] #### BMP, GFR #### [address] [address] Platelet mean volume (Bld) [Entitic vol] 11.4 fL High 7.4-10.4 [facility] ([place]) Comment on above: Performed By: #### C BC, ADIFF, ANEU #### [place] [address] #### BMP, GFR #### [address] [address] Platelets (Bld) [#/Vol] 158 10 3/mcL Normal 130-400 [facility] ([place]) Comment on above: Performed By: #### C BC, ADIFF, ANEU #### [address] [address] #### BMP, GFR #### [place] [address] RBC (Bld) [#/Vol] 3.18 10 6/mcL Low 4.20-5.40 [facility] ([place]) Comment on above: Performed By: #### C BC, ADIFF, ANEU #### [address] [address] #### BMP, GFR #### [address] [address] WBC (Bld) [#/Vol] 14.70 10 3/mcL High 4.60-10.80 [facility] ([place]) Comment on above: Performed By: #### C BC, ADIFF, ANEU #### [address] [address] #### BMP, GFR #### [place] [address] XR KNEE 1 OR 2 VIEWS LEFTon 04-19-2019 XR KNEE 1 OR 2 VIEWS LEFT ORIGINAL XR KNEE 1 OR 2 VIEWS LEFT CLINICAL STATEMENT: Status Post Arthroplasty. 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 There are no hardware complications. Soft tissue gas and skin nadege are in keeping with recent surgery. IMPRESSION: LEFT total knee arthroplasty demonstrating no immediate complications. Interpreted By: Lisseth Warner MD Preliminary Report By: Lisseth Warner MD Electronically Signed By: Lisseth Warner MD Dictated Date: 04/19/2019 2:51:41 PM Prelim Date: 04/19/2019 2:51:41 PM Sign Date: 04/19/2019 2:53:16 PM Normal [facility] ([place]) A1Con 04-05-2019 HbA1c (Bld) [Mass fraction] 6.0 % Normal 4.5-6.2 [facility] ([place]) Comment on above: Performed By: #### A 1C #### [place] [address] CT KNEE W/O CONTRAST LEFTon 04-05-2019 CT KNEE W/O CONTRAST LEFT ORIGINAL CT KNEE W/O CONTRAST LEFT CLINICAL STATEMENT: DEFORMITY OF LT KNEE COMPARISON: None FINDINGS: This exam was performed according to our departmental dose-optimization program which includes automated exposure control, adjustment of the mA and/or kVp according to patient size and/or use of iterative reconstruction technique where applicable. Survey images of the LEFT hip demonstrate mild degenerative changes. Severe tricompartmental degenerative changes noted in the LEFT knee with varus angulation. There are corticated ossicles near the medial tibiofemoral compartment. No fractures visualized. Patellar enthesophytes seen. Small joint effusion seen. Survey images of the LEFT ankle demonstrate corticated ossicles near the medial malleolus. Atherosclerosis noted. Calcified uterine fibroids noted. IMPRESSION: 1. Severe tricompartmental degenerative changes in the knee with varus angulation. There are corticated ossicles in the medial tibiofemoral compartment which could relate to loose intra-articular bodies 2. Small joint effusion in the LEFT knee Interpreted By: Paulino Yousif MD Preliminary Report By: Paulino Yousif MD Electronically Signed By: Paulino Yousif MD Dictated Date: 04/05/2019 2:20:57 PM Prelim Date: 04/05/2019 2:20:57 PM Sign Date: 04/05/2019 2:25:04 PM Normal [facility] ([place]) Office Visiton 08-28-2017 Documentation of current medications (procedure) Done Invalid Interpretation Code [employer] Work Phone: [phone] Fall risk assessment No Invalid Interpretation Code [employer] Work Phone: [phone] Protein mass conc Done Invalid Interpretation Code [employer] Work Phone: [phone] Lab Report: Lipid Profileon 08-26-2017 Cholesterol 153 mg/dL Invalid Interpretation Code 200 [employer] Work Phone: [phone] HDL Cholesterol 73 mg/dL Invalid Interpretation Code [employer] Work Phone: [phone] LDL Cholesterol 65 mg/dL Invalid Interpretation Code 0-130 [employer] Work Phone: [phone] Triglyceride 73 mg/dL Invalid Interpretation Code [employer] Work Phone: [phone] very low density lipoproteins 15 mg/dL Invalid Interpretation Code 5-40 [employer] Work Phone: [phone] Lab Report: Liver Profileon 08-26-2017 Alanine aminotransferase (ALT) 19 U/L Invalid Interpretation Code 12-78 [employer] Work Phone: [phone] Albumin 3.1 g/dL Low 3.4-5.0 [employer] Work Phone: [phone] Alkaline phosphatase (ALP) 79 U/L Invalid Interpretation Code 45-117 [employer] Work Phone: [phone] ALP enzyme act/vol (Bld) 79 U/L Invalid Interpretation Code 45-117 [employer] Work Phone: [phone] Aspartate aminotransferase (AST) 19 U/L Invalid Interpretation Code 15-37 [employer] Work Phone: [phone] Bilirubin (direct) 0.15 mg/dL Invalid Interpretation Code 0.00-0.30 [employer] Work Phone: [phone] Bilirubin (total) 0.70 mg/dL Invalid Interpretation Code 0.20-1.00 [employer] Work Phone: [phone] Globulin 4.0 g/dL Invalid Interpretation Code 2.2-4.2 [employer] Work Phone: [phone] Protein 7.1 g/dL Invalid Interpretation Code 6.4-8.2 [employer] Phone: [phone] Office Visit: [facility] 12-22-19 17 Documentation of current medications (procedure) Done Invalid Interpretation Code [employer] Phone: [phone] Protein mass conc Done Invalid Interpretation Code [employer] Work Phone: [phone] 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 Left ventricular Ejection fraction 65 % Invalid Interpretation Code [employer] Work Phone: [phone] Office Visiton 06-23-2016 Dietary management education, guidance, and counseling (procedure) yes Invalid Interpretation Code [employer] Work Phone: [phone] Clinical Lists Updateon 12-11 Chloride 105 mmol/L Invalid Interpretation Code [employer] Work Phone: [phone] CO2 30.0 mmol/L Invalid Interpretation Code [employer] Work Phone: [phone] CO2 ppres (BldV) 30.0 mmol/L Invalid Interpretation Code [employer] Work Phone: [phone] Creatinine 0.86 mg/dL Invalid Interpretation Code [employer] Work Phone: [phone] Hematocrit (HCT) 41.9 % Invalid Interpretation Code [employer] Work Phone: [phone] Hemoglobin mass conc (Bld) 13.4 g/dL Invalid Interpretation Code [employer] Work Phone: [phone] Platelets 216 10*3/mm3 Invalid Interpretation Code [employer] Work Phone: [phone] Potassium molar conc 3.8 mmol/L Invalid Interpretation Code [employer] Work Phone: [phone] Sodium 140 mmol/L Invalid Interpretation Code [employer] Work Phone: [phone] Urea nitrogen 11 mg/dL Invalid Interpretation Code [employer] Work Phone: [phone] WBC (Leukocytes) 4.4 10*3/uL Invalid Interpretation Code [employer] Work Phone: [phone] Office Visit: [facility] 10-26-20 15 Tobacco smoking status NHIS Never smoker Invalid Interpretation Code [employer] Work Phone: [phone] Tobacco use CPHS Never smoker Invalid Interpretation Code [employer] Work Phone: [phone] Replaced Document: Aleksandr Land 10-26-2015 EKG QRS axis -26 deg Invalid Interpretation Code [facility] Phone: [phone] Interpretation Sinus Rhythm -First degree A-V block 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 ABNORMAL Invalid Interpretation Code [employer] Work Phone: [phone] P Bolton 25 deg Invalid Interpretation Code [employer] Work Phone: [phone] DC Interval 220 ms Invalid Interpretation Code [employer] Work Phone: [phone] Pulse (Heart Rate) 67 /min Invalid Interpretation Code [employer] Work Phone: [phone] QRS Duration 86 ms Invalid Interpretation Code [employer] Work Phone: [phone] QT Interval new path ms Invalid Interpretation Code [employer] Work Phone: [phone] QTc Bruner 404 ms Invalid Interpretation Code [facility] Work Phone: [phone] T Bolton -1 deg Invalid Interpretation Code [facility] Work Phone: [phone] Office Visiton 05-02-2015 cardiac risk group C Invalid Interpretation Code [facility] Work Phone: [phone] General cardiovascular disease 10Y risk [#] [place]D'Agostino N/A Invalid Interpretation Code [facility] Work Phone: [phone] Lab Report: Basic Metabolic Profile (BMP)on 11-07-2014 Anion gap 5 mmol/L Invalid Interpretation Code 5-15 [facility] Work Phone: [phone] Anion gap 4 molar conc 5 Invalid Interpretation Code 5-15 [facility] Work Phone: [phone] BUN/Creatinine Ratio 17.5 RATIO Invalid Interpretation Code 10-20 [facility] Work Phone: [phone] Calcium 9.2 mg/dL Invalid Interpretation Code 8.5-10.1 [facility] Work Phone: [phone] Glucose mass conc 117 mg/dL Critically high 70-110 [facility] Work Phone: [phone] Lab Report: Thyroid Stim Hor lupe (TSH)on 11-07-2014 Thyroid stimulating hormone (TSH) 3.79 u[iU]/mL Critically high 0.358-3.74 [facility] Work Phone: [phone] Lab Report: PTon 03-25-2012 INR Coag RelTime (PPP) 0.9 {INR} Normal [facility] Work Phone: [phone] PTP 12.3 SECONDS Normal 11.9-14.4 [facility] Work Phone: [phone] Lab Report: PTTon 03-25-2012 aPTT 31.3 s Normal 24.1-36.2 [facility] Work Phone: [phone] Replaced Document: [employer] E CG Observationson 03-25-2012 Pulse (Heart Rate) 424 ms Invalid Interpretation Code [facility] Work Phone: [phone] Lab Report: CBCDon 2 Erythrocytes (RBC) 3.74 10*6/uL Low 4.2-5.[address] [facility] Work Phone: [phone] Lab Report: MGon 03-17-2012 Magnesium 1.4 mg/dL Low 1.8-2.4 [facility] Work Phone: [phone] Lab Report: T4on 03-17-2012 Thyroxine (T4) 9.6 ug/dL Normal 4.8-13.9 [facility] Work Phone: [phone] Vital Signs Date Time Vital Sign Value Performing Clinician Faci lity 11-13-2023 11:16-0500 Body height 165.[address] Bry Walker Work Phone: [facility] 11-13-2023 11:16-0500 Diastolic blood pressure 70 mm[Hg] Dr. Bry Walker Work Phone: [facility] 11-13-2023 11:16-0500 Systolic blood pressure 140 mm[Hg] Dr. Bry Walker Work Phone: [facility] 09-26-2022 13:05-0500 Body height 165.[address] Bry Walker Work Phone: [facility] 09-26-2022 13:05-0500 Body mass index (BMI) [Ratio] 32 kg/m2 Dr. Bry Walker Work Phone: [facility] 09-26-2022 13:05-0500 Body mass index (BMI) [Ratio] 32.3 kg/m2 Dr. Bry Walker Work Phone: [facility] 09-26-2022 13:05-0500 Body weight 87.[address] Bry Walker Work Phone: [facility] 09-26-2022 13:05-0500 Body weight 87.[address] Bry Walker Work Phone: [facility] 09-26-2022 13:05-0500 Diastolic blood pressure 68 mm[Hg] Dr. Bry Walker Work Phone: [facility] 09-26-2022 13:05-0500 Heart rate 68 /min Dr. Bry Walker Work Phone: [facility] 09-26-2022 13:05-0500 Heart rate 63 /min Dr. Bry Walker Work Phone: [facility] 09-26-2022 13:05-0500 Respiratory rate 18 /min Dr. Bry Walker Work Phone: [facility] 09-26-2022 13:05-0500 SaO2% (BldA) [Mass fraction] 97 % Dr. Bry Walker Work Phone: [facility] 09-26-2022 13:05-0500 Systolic blood pressure 150 mm[Hg] Dr. Bry Walker Work Phone: [facility] 08-28-2017 13:29-0400 BMI (Body Mass Index) 31.79 kg/m2 [facility] Work Phone: 08-28-2017 13:29-0400 BP Diastolic 76 mm[Hg] Harumi DeFinchandana [facility] Work Phone: 08-28-2017 13:29-0400 BP Systolic 142 mm[Hg] Harumi DeFinis [facility] Work Phone: 08-28-2017 13:29-0400 Height 168.91 cm Harumi DeFinis [facility] Work Phone: 08-28-2017 13:29-0400 Pulse (Heart Rate) 64 /min Harumi DeFinis [facility] Work Phone: 08-28-2017 13:29-0400 Respiratory Rate 18 /min Harumi DeFinis [facility] Work Phone: 08-28-2017 13:29-0400 Weight 90.72 kg Harumi DeFinis [facility] Work Phone: 12-22-2016 14:15-0500 BMI (Body Mass Index) 31.92 kg/m2 Shelly Anthony PA-C [facility] Work Phone: 12-22-2016 14:15-0500 BP Diastolic 60 mm[Hg] Shelly Anthony PA-C [facility] Work Phone: 12-22-2016 14:15-0500 BP Systolic 112 mm[Hg] Shelly Anthony PA-C [facility] Work Phone: 12-22-2016 14:15-0500 BSA (Body Surface Area) 2.02 m2 Shelly Anthony PA-C [facility] Work Phone: 12-22-2016 14:15-0500 Pulse (Heart Rate) 72 /min Shelly Anthony PA-C [facility] Work Phone: 12-22-2016 14:15-0500 Respiratory Rate 20 /min Shelly Anthony PA-C [facility] Work Phone: 12-22-2016 14:15-0500 Weight 91.08 kg Shelly Anthony PA-C [facility] Work Phone: 10-26-2015 13:55-0500 Heart rate 67 /min [facility] Work Phone: 03-25-2012 15:34-0400 Heart rate 424 ms [facility] Work Phone: 03-12-2012 13:20-0400 Height 168.91 cm Shelly Anthony PA-C [facility] Work Phone: Encounters Encounter Date Encounter Type Care Provider Facility Start: 01-27-2025 End: 01-27-[address] Bry Walker MD Work Phone: [facility] Work Phone: Start: 01-27-2025 End: 01-27-[address] Bry Walker MD -Outpatient Breast [facility] Work Phone: Start: 01-27-2025 End: 01-27-2025 ambulatory Bry Walker Facility:[facility] Start: 01-21-[address] Bry Walker Work Phone: [facility] Work Phone: Start: 01-19-2024 End: 01-19-[address] Bry Walker Work Phone: [facility] Work Phone: Start: 01-19-2024 End: 01-19-[address] Bry Walker Work Phone: [facility] Work Phone: Start: 11-13-2023 End: 11-13-[address] Bry Walker Work Phone: [facility] Work Phone: Start: 11-11-2023 End: 11-11-[address] Bry Walker Work Phone: [facility] Work Phone: Start: 11-11-2023 End: 11-11-[address] Bry Walker Work Phone: [facility] Work Phone: Start: 07-24-2023 End: 07-24-2023 ambulatory [facility] Work Phone: Start: 07-24-2023 End: 07-24-2023 Patient encounter procedure [facility] Work Phone: Start: 11-20-2022 End: 11-20-[address] Bry Walker Work Phone: [facility] Work Phone: Start: 11-20-2022 End: 11-20-[address] Bry Walker Work Phone: [facility] Start: 09-26-2022 End: 09-26-[address] Bry Walker Work Phone: [facility] Start: 09-23-2022 End: 11-15-[address] Bry Walker Work Phone: [facility] Work Phone: Start: 09-23-2022 End: 09-23-[address] Bry Walker Work Phone: [facility] Start: 04-21-2022 End: 04-21-2022 Patient encounter procedure [facility] Procedures Date Procedure Procedure Detail Performing Clinician Start: 01-27-2025 Screening mammography Naina Walker MD Work Phone: Start: 01-21-2024 Screening mammography Naina Walker Work Phone: Start: 11-20-2022 Screening mammography Naina Walker Work Phone: Start: 08-28-2017 End: 08-28-2017 Follow Up Appt 6 months Dominic Garcia MD Start: 08-28-2017 End: 08-28-2017 MMM Dominic Garcia MD Start: 06-22-2017 End: 08-26-2017 *Hepatic Function [...] 06-23-2016 Follow Up Appt 6 months Dominic Garcia MD Start: 06-23-2016 End: 06-23-2016 MMM Dominic Garcia MD Start: 06-09-2016 End: 06-25-2016 *Hepatic Function Panel Dominic Garcia MD Start: 06-09-2016 End: 06-25-2016 Lipid 1996 panel - Serum or Plasma Dominic Garcia MD Start: 04-24-2016 End: 06-20-2016 *Hepatic Function [...] 05-02-2015 Follow Up Appt 6 months Dominic Garcia MD Start: 05-02-2015 End: 05-02-2015 JOSE ALBERTO Garcia MD Start: 04-30-2015 End: 04-30-2015 *Hepatic Function [...] 04-05-2014 End: 09-25-2014 *Hepatic Function Panel Dominic Garcia MD Start: 04-05-2014 End: 04-05-2014 Follow Up Appt 6 months Dominic Garcia MD Start: 04-05-2014 End: 09-25-2014 Lipid 1996 panel - Serum or Plasma Dominic Garcia MD Start: 04-05-2014 End: 04-05-2014 JOSE ALBERTO Garcia MD Start: 09-30-2013 End: 04-04-2014 *Hepatic Function Panel Dominic Garcia MD Start: 09-30-2013 End: 04-05-2014 Follow Up Appt 6 months Dominic Garcia MD Start: 09-30-2013 End: 04-04-2014 Lipid 1996 panel - Serum or Plasma Dominic Garcia MD Start: 09-30-2013 End: 04-05-2014 PFM Dominic Garcia MD Start: 06-09-2013 End: 04-05-2014 *Hepatic Function [...] Start: 03-25-2012 End: 04-20-2012 Chest x-ray Manuel Becfkord MD Start: 03-25-2012 End: 03-25-2012 Ecg routine [...] Author Start: 02-24-2018 End: 02-24-2018 Appointment Appointment [facility] Work Phone: Start: 08-28-2017 End: 08-28-2017 *Hepatic Function Panel *Hepatic Function Panel [facility] Work Phone: Start: 08-28-2017 End: 08-28-2017 Follow Up Appt 6 months Follow Up Appt 6 months [facility] Work Phone: Start: 08-28-2017 End: 08-28-2017 Lipid panel [AGGREGATE] *Lipid Profile CC PCP [facility] Work Phone: Start: 08-28-2017 End: 08-28-2017 MMM MMM [facility] Work Phone: Start: 08-28-2017 End: 08-28-2017 Appointment Appointment [facility] Work Phone: Start: 06-22-2017 End: 08-26-2017 *Hepatic Function Panel *Hepatic Function Panel [facility] Work Phone: Start: 06-22-2017 End: 08-26-2017 Lipid panel [AGGREGATE] *Lipid Profile CC PCP [facility] Work Phone: Start: 12-22-2016 End: 12-22-2016 *Hepatic Function Panel *Hepatic Function Panel [facility] Work Phone: Start: 12-22-2016 End: 12-22-2016 Follow Up Appt 9 months Follow Up Appt 9 months [facility] Work Phone: Start: 12-22-2016 [...] 06-25-2016 *Hepatic Function Panel *Hepatic Function Panel [facility] Work Phone: Start: 06-09-2016 End: 06-25-2016 Lipid panel [AGGREGATE] *Lipid Profile CC PCP [facility] Work Phone: Start: 04-24-2016 End: 06-20-2016 *Hepatic Function Panel *Hepatic Function Panel [facility] Work Phone: Start: 04-24-2016 End: 06-20-2016 Lipid panel [AGGREGATE] *Lipid Profile CC PCP [facility] Work Phone: Start: 10-30-2015 End: 10-24-2015 *Hepatic Function Panel *Hepatic Function Panel [facility] Work Phone: Start: 10-30-2015 End: 10-24-2015 Lipid panel [AGGREGATE] *Lipid Profile CC PCP [facility] Work Phone: Start: 10-26-2015 End: 10-26-2015 Ecg routine ecg w/least 12 lds w/i&r EKG (In office) [facility] Work Phone: Start: 10-26-2015 End: 10-26-2015 Follow Up Appt 6 months Follow Up Appt 6 months [facility] Work Phone: Start: 10-26-2015 End: 10-26-2015 Follow Up Appt Other Follow Up Appt Other [facility] Work Phone: Start: 10-26-2015 End: 10-26-2015 PFM PFM [facility] Work Phone: Start: 06-08-2015 End: 04-30-2015 *Hepatic Function Panel *Hepatic Function Panel [facility] Work Phone: Start: 06-08-2015 End: 04-30-2015 Lipid panel [AGGREGATE] *Lipid Profile CC PCP [facility] Work Phone: Start: 05-02-2015 End: 05-02-2015 Follow Up Appt 6 months Follow Up Appt 6 months [facility] Work Phone: Start: 05-02-2015 End: 05-02-2015 MMM MMM [facility] Work Phone: Start: 09-25-2014 End: 11-07-2014 *Hepatic Function Panel *Hepatic Function Panel [facility] Work Phone: Start: 09-25-2014 End: 09-25-2014 Ecg routine ecg w/least 12 lds w/i&r EKG (In office) [facility] Work Phone: Start: 09-25-2014 End: 09-25-2014 Follow Up Appt 6 months Follow Up Appt 6 months [facility] Work Phone: Start: 09-25-2014 End: 11-07-2014 Lipid panel [AGGREGATE] *Lipid Profile CC PCP [facility] Work Phone: Start: 09-25-2014 End: 09-25-2014 PFM PFM [facility] Work Phone: Start: 04-05-2014 End: 09-25-2014 *Hepatic Function Panel *Hepatic Function Panel [facility] Work Phone: Start: 04-05-2014 End: 04-05-2014 Follow Up Appt 6 months Follow Up Appt 6 months [facility] Work Phone: Start: 04-05-2014 End: 09-25-2014 Lipid panel [AGGREGATE] *Lipid Profile CC PCP [facility] Work Phone: Start: 04-05-2014 End: 04-05-2014 MMM MMM [facility] Work Phone: Start: 09-30-2013 End: 04-04-2014 *Hepatic Function Panel *Hepatic Function Panel [facility] Work Phone: Start: 09-30-2013 End: 04-05-2014 Follow Up Appt 6 months Follow Up Appt 6 months [facility] Work Phone: Start: 09-30-2013 End: 04-04-2014 Lipid panel [AGGREGATE] *Lipid Profile CC PCP [facility] Work Phone: Start: 09-30-2013 End: 04-05-2014 PFM PFM [facility] Work Phone: Start: 06-09-2013 End: 04-05-2014 *Hepatic Function Panel *Hepatic Function Panel [facility] Work Phone: Start: 06-09-2013 End: 04-05-2014 Lipid panel [AGGREGATE] *Lipid Profile [facility] Work Phone: Start: 10-09-2012 End: 12-28-2012 *Hepatic Function Panel *Hepatic Function Panel [facility] Work Phone: Start: 10-09-2012 End: 12-28-2012 Lipid panel [AGGREGATE] *Lipid Profile [facility] Work Phone: Start: 05-10-2012 End: 05-10-2012 *Hepatic Function Panel *Hepatic Function Panel [facility] Work Phone: Start: 05-10-2012 End: 05-10-2012 Follow Up Appt Other Follow Up Appt Other [facility] Work Phone: Start: 05-10-2012 End: 07-15-2012 Lipid panel [AGGREGATE] *Lipid Profile [facility] Work Phone: Start: 03-25-2012 End: 03-25-2012 aPTT *PTT-Partial Thromboplastin Time [facility] Work Phone: Start: 03-25-2012 End: 04-20-2012 Chest x-ray X-Ray, Chest, PA & Lateral [facility] Work Phone: Start: 03-25-2012 End: 03-25-2012 Ecg routine ecg w/least 12 lds w/i&r EKG (In office) [facility] Work Phone: Start: 03-25-2012 End: 03-25-2012 Follow Up Appt 2 months Follow Up Appt 2 months [facility] Work Phone: Start: 03-25-2012 End: 04-20-2012 INR Coag RelTime (PPP) *PT/INR [facility] Work Phone: Start: 03-25-2012 End: 03-25-2012 Left Heart Cath Left Heart Cath [facility] Work Phone: Start: 03-12-2012 End: 03-18-2012 *BMP *BMP [facility] Work Phone: Start: 03-12-2012 End: 03-18-2012 *CBC with Differential *CBC with Differential [facility] Work Phone: Start: 03-12-2012 End: 03-12-2012 24 hour holter monitor 24 hour holter monitor [facility] Work Phone: Start: 03-12-2012 End: 03-18-2012 aPTT *PTT-Partial Thromboplastin Time [facility] Work Phone: Start: 03-12-2012 End: 03-12-2012 Echocardiography Echocardiogram (complete) [facility] Work Phone: Start: 03-12-2012 End: 03-18-2012 Follow Up Appt 2 months Follow Up Appt 2 months [facility] Work Phone: Start: 03-12-2012 End: 03-18-2012 INR Coag RelTime (PPP) *PT/INR [facility] Work Phone: Start: 03-12-2012 End: 03-18-2012 Lipid panel [AGGREGATE] *Lipid Profile [facility] Work Phone: Start: 03-12-2012 End: 03-18-2012 Magnesium *Magnesium [facility] Work Phone: Start: 03-12-2012 End: 03-12-2012 Nuclear stress test -adenosine Nuclear stress test -adenosine [facility] Work Phone: Start: 03-12-2012 End: 03-18-2012 Thyroid stimulating hormone (TSH) *TSH [facility] Work Phone: Start: 03-12-2012 End: 03-18-2012 Thyroxine (T4) *T4 (Total) [facility] Work Phone: Patient Education [facility] Work Phone: Payers Date Payer Category Payer Self-pay [id number] 2016 Unknown [id number] 2000 Medicare [id number] Unknown Unknown [id number] Social History Date Type Detail Facility Start: 09-11-2021 End: 11-13-2023 Tobacco smoking status NHIS Unknown if ever smoked [facility] Start: 1935 Sex Assigned At Female W [facility] Start: 11-13-2023 Tobacco smoking stat us NYIS Never smoked tobacco (finding) [facility] Start: 02-03-2025 Sex Female (finding) [facility] Evaluation note Note Date & Type Note Facility Evaluation note No assessment information availa ble [facility] Work Phone: Evaluation note Note Date & Type Note Facility Evaluation note Diagnosis Onset Date 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 (primary) hypertension chronic Pure hypercholesterolemia ch ronic [facility] Work Phone: Reason for referral (narrative) Note Date & Type Note Facility Reason for referral (narrative) No reason for referral information available [facility] Work Phone: Summary Purpose Family History Relationship Condition Age at Onset Recorded Date/T doc father Cerebrovascular accident (CVA) Unknown Diabetes mellitus Unknown Hypertension Unknown Congestive heart failure Unknown mother Natural with unknown cause Unknown brother Hypertension Unknown Advance Directives Advance Directive Response Recorded Date/ Time Living Will Yes June 20 6:01am Power of Project Designer Yes June 20 016 6:01am Advance Directive Response Recorded Date/ Time Living Will Yes June 20 5:01am Power of Project Designer Yes June 20 016 5:01am Chief Complaint and Reason for Visit Chief Complaint EORDER FROM DR WALKER AND DR GARCIA Chief Complaint EORDER 1 y fu Reason for Visit Atherosclerotic hear t disease of [place] coronary artery without angina pectoris Essential (primary) hypertension Pure hypercholesterolemia Chief Complaint EORDER 1 y fu SCREENING Reason for Visit Atherosclerotic hear t disease of [place] coronary artery without angina pectoris Essential (primary) hypertension Pure hypercholesterolemia Chief Complaint EORDER 1 Y FU/PREV PFM Reason for Visit Atherosclerotic hear t disease of [place] coronary artery without angina pectoris Essential (primary) hypertension Pure hypercholesterolemia Chief Complaint EORDER 1 Y FU/PREV PFM SCREENING, HX DCIS; CC RESULTS Reason for Visit Atherosclerotic hear t disease of [place] coronary artery without angina pectoris Essential (primary) hypertension Pure hypercholesterolemia Chief Complaint Admit Date SCREENING January 27, 2025 8:1 2am Additional Source Comments INFORMATION SOURCE (unrecogn ized section and content) DATE CREATED AUTHOR 06/29/2019 [facility] ([place]) DATE CREATED AUTHOR AUTHOR'S ORGANIZ ATION 02/05/2025 [facility] Goals (unrecognized section and content) Goals may be documented in a n alternate sectionGoals may be documented in an alternate sectionGoals may be documented in an alternate sectionGoals may be documented in an alternate sectionGoals may be documented in an alternate sectionGoals may be documented in an alternate sectionGoals may be documented in an alternate section Care Teams (unrecognized sec tion and content) Team Status: Active Member Role Status Dates Dr. Bry Walker MD Family Provider Active Dr. Bry Walker MD Primary Care Provider Active Team Status: Inactive Member Role Status Dates Dr. Bry Walker MD Primary Care Provider, Referring P rovider Active Dr. Dominic Garcia MD Attending Provider Active Team Status: Inactive Member Role Status Dates Dr. Bry Walker MD Primary Care Provide r, Attending Provider, Referring Provider Active Team Status: Inactive Member Role Status Dates Dr. Bry Walker MD Primary Care Provider Active Dr. Dominic Garcia MD Attending Provider, Referring Provider Active Team Status: Inactive Member Role Status Dates Dr. Bry Walker MD Primary Care Provider, Referring P rovider Active Shelly Anthony PA, PA Attending Provider Active Team Status: Active Member Role Status Dates Dr. Bry Walker MD Primary Care Provide r, Attending Provider, Referring Provider Active Team Status: Active Member Role Status Dates Dr. Bry Walker MD Primary Care Provider Active Team Status: Inactive Member Role Status Dates Dr. Bry Walker MD Primary Care Provider Active Start: January 27, 2025 End: January 27, 2025 Dr. Bry Walker MD Attending Provider Active St art: January 27, 2025 End: January 27, 2025 Dr. Bry Walker MD Referring Provider Active St art: January 27, 2025 End: January 27, 2025 FOR RECORDS PERTAINING TO PATIENTS WHO ARE [...] BE BASED ON THE PRIMARY CLINICAL RECORDS. [employer] [facility]. provides no warranty or guarantee of the accuracy or completeness of information in this document.
[2025-07-28 10:55] LABS: Hematocrit 39.1 % (37-47); Hemoglobin 12.7 g/dL (12.0-15.0); Immature Granulocytes Count 0.000 X10^3/uL (0.0-0.0); Mean Corp Hgb Conc 32.5 g/dL (32-36); Mean Corpuscular Volume 94.2 fL (81-99); Mean Platelet Vol. 13.1 fl (6.2-12.0); NRBC Flagged by Analyzer 0 % (0-5); Platelet Count 215 K/mm3 (150-450); RBC Distribution Width CV 12.9 % (11.6-14.6); RBC Distribution Width SD 44.8 fl (35.1-43.9); Red Blood Count 4.15 M/mm3 (4.2-5.4); White Blood Count 6.0 K/mm3 (4.4-11.0)
[2025-07-28 11:03] LABS: Creatinine, Urine (random) 100.00 mg/dL (28.00-217.00); Microalbumin,Random Urine < 12.0 mg/L (<20 mg/L)
[2025-07-28 12:25] LABS: AST(SGOT) 20 U/L (<=31); Alanine Aminotransfer ALT/SGPT 9 U/L (<=34); Albumin, Serum 3.7 g/dL (3.4-4.8); Alkaline Phosphatase 84 U/L (35-104); Anion Gap 12 (5-15); BUN 16 mg/dL (4-19); BUN/Creat Ratio 18.4 RATIO (10-20); Calcium,Total 9.1 mg/dL (7.6-11.0); Carbon Dioxide 23.0 mmol/L (21.0-32.0); Chloride 104 mmol/L (98-108); Cholesterol 148 mg/dL (<=200); Globulin 3.9 g/dL (2.2-4.2); Glucose 134 mg/dL (70-99); Low Density Lipoprotein Calc. 68 mg/dL; Potassium 4.1 mmol/L (3.3-5.1); Triglycerides 78 mg/dL; Very Low Density Lipoprotein 16 mg/dL (5-40); cholesterol:hdl ratio screen 2.31
== END | disposition home or self-care (01) ==
LOC: MTLAB 08:19
PROVIDERS: PCP Family Medicine; Referring Provider Family Medicine; Visit Provider Family Medicine
DX: E11.628 Type 2 diabetes mellitus with other skin complications (principal); E03.9 Hypothyroidism, unspecified
CPT/HCPCS: 36415; 80053; 80061; 82043; 82570; 83036; 84443; 85025